=== PATIENT | male | born 1955 | race Caucasian/White ===

== ENCOUNTER 2017-04-27 21:24 | Inpatient (IN) | payer MEDICAID ==
[~2017-04-27] VITALS: Ht 170.2 cm; Wt 88.9 kg
[~2017-04-27 21:24] MED LIST: BACT800T5 PO; CEPH-460 PO; IOHEXOL 350 MG/ML 10 ML VIAL (for RAD DIAG) IVCONTRAST ONE; LAMI200T PO
[2017-04-27 21:41] VITALS: BP 129/78; PULSE 76; RESP 20; TEMP 97.6; O2SAT 98
[2017-04-27 21:50] VITALS: BP 129/78; PULSE 69; RESP 20; O2SAT 98
[2017-04-27] MEDS ORDERED: CLINDAMYCIN INJ 600 MG in SODIUM CHLORIDE 0.9% INJ 100 ML IV ONE (22:00)
[2017-04-27] MEDS ORDERED: TETANUS/DIPHTHERIA TOXOID ADULT 0.5 ML VIAL IM ONE (22:00)
[2017-04-27] MEDS ORDERED: SODIUM CHLORIDE 0.9% FLUSH 10 ML FLUSH IVF PRN (22:00)
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
[2017-04-27] MEDS ORDERED: ONDANSETRON HCL 4 MG/2 ML VIAL IV PUSH ONE (22:45)
[2017-04-27] MEDS ORDERED: MORPHINE SULFATE 2 MG/ML INJ IV PUSH ONE (22:45)
[2017-04-27] MEDS ORDERED: NS + KCL 20 MEQ INJ 1,000 ML IV SCH (22:58)
[2017-04-27] MEDS ORDERED: ACETAMINOPHEN 325 MG TAB PO PRN (23:00)
[2017-04-27] MEDS ORDERED: CALCIUM GLUCONATE INJ 1 GM in SODIUM CHLORIDE 0.9% INJ 100 ML IV PRN (23:00)
[2017-04-27] MEDS ORDERED: MAGNESIUM HYDROXIDE SUSP 30 ML CUP PO PRN (23:00)
[2017-04-27] MEDS ORDERED: POTASSIUM CHLOR 20 MEQ PREMIX 100 ML IV PRN (23:00)
[2017-04-27] MEDS ORDERED: MORPHINE SULFATE 4 MG/ML INJ IV PUSH PRN (23:00)
[2017-04-27] MEDS ORDERED: ACETAMINOPHEN/HYDROcodone 325 MG/10 MG TAB PO PRN (23:00)
[2017-04-27] MEDS ORDERED: MAGNESIUM SULFATE INJ 2 GM in SODIUM CHLORIDE 0.9% INJ 100 ML IV PRN (23:00)
[2017-04-27] MEDS ORDERED: ALUMINUM/MAGNESIUM/SIMETH 30 ML CUP PO PRN (23:00)
[2017-04-27] MEDS ORDERED: cloNIDine HCL 0.1 MG TAB PO PRN (23:00)
[2017-04-27] MEDS ORDERED: levETIRAcetam INJ 500 MG in SODIUM CHLORIDE 0.9% INJ 100 ML IV SCH (23:00)
[2017-04-27] MEDS ORDERED: RESP: ALBUTEROL 2.5 MG/3 ML NEB (PRN) NEB (23:00)
[2017-04-27] MEDS ORDERED: ONDANSETRON HCL 4 MG/2 ML VIAL IV PUSH PRN (23:00)
[2017-04-27] MEDS ORDERED: LORazepam 2 MG/ML VIAL IV PUSH PRN (23:00)
[2017-04-27] MEDS ORDERED: LABETALOL HCL 100 MG/20 ML VIAL IV PUSH PRN (23:00)
[2017-04-27] MEDS ORDERED: SODIUM CHLORIDE 0.9% FLUSH 10 ML FLUSH IV FLUSH PRN (23:00)
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
[2017-04-28] VITALS (14 sets, daily range): BP systolic 99–135; BP diastolic 66–76; PULSE 54–68; RESP 17–20; TEMP 98.3–98.7; O2SAT 94–99
[2017-04-28 00:03] LABS: AUTOMATED NEUTROPHIL # 6.2 TH/MM3 (1.8-7.7); BASOPHIL % 0.5 % (0.0-2.0); EOSINOPHIL # 0.1 TH/MM3 (0-0.4); EOSINOPHIL % 1.9 % (0.0-4.0); HEMO FLAGS DIFF FINAL; LYMPH % 8.1 % (9.0-44.0); LYMPHOCYTE # 0.6 TH/MM3 (1.0-4.8); MEAN CELL VOLUME 98.5 FL (80.0-100.0); MEAN CORPUSCULAR HEMOGLOBIN 32.8 PG (27.0-34.0); MEAN CORPUSCULAR HGB CONC 33.3 % (32.0-36.0); MONO % 5.8 % (0.0-8.0); NEUT % 83.7 % (16.0-70.0); PLATELET COUNT 248 TH/MM3 (150-450); RED BLOOD COUNT 3.55 MIL/MM3 (4.50-5.90); RED CELL DISTRIBUTION WIDTH 13.9 % (11.6-17.2); WHITE BLOOD COUNT 7.4 TH/MM3 (4.0-11.0)
[2017-04-28 00:08] LABS: APTT (PATIENT) 30.1 SEC (24.3-30.1); PROTHROMBIN TIME - PATIENT 11.2 SEC (9.8-11.6)
[2017-04-28 00:11] LABS: BICARBONATE 27.4 MEQ/L (21.0-32.0); POTASSIUM 3.9 MEQ/L (3.5-5.1)
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
[2017-04-28] MEDS ORDERED: NALOXONE HCL 0.4 MG/ML AMP IV PUSH PRN (01:45)
[2017-04-28] MEDS: levETIRAcetam INJ 500 MG in SODIUM CHLORIDE 0.9% INJ 100 ML IV SCH ×3 (01:45→20:09)
[2017-04-28] MEDS ORDERED: SODIUM CHLORIDE 0.9% FLUSH 10 ML FLUSH IV FLUSH PRN (01:45)
[2017-04-28] MEDS ORDERED: ONDANSETRON HCL 4 MG/2 ML VIAL IV PUSH PRN (01:45)
[2017-04-28] MEDS ORDERED: Post-op Orders (for Pharmacy) MISC XX ONE (01:45)
[2017-04-28] MEDS: MORPHINE SULFATE 4 MG/ML INJ IV PUSH PRN (02:19)
[2017-04-28] MEDS: SODIUM CHLOR 0.9% 1000 ML INJ 1,000 ML IV SCH ×2 (02:20→11:13)
[2017-04-28 05:27] LABS: AUTOMATED NEUTROPHIL # 4.2 TH/MM3 (1.8-7.7); BASOPHIL % 0.4 % (0.0-2.0); EOSINOPHIL # 0.2 TH/MM3 (0-0.4); EOSINOPHIL % 3.7 % (0.0-4.0); HEMATOCRIT 30.6 % (39.0-51.0); HEMO FLAGS DIFF FINAL; LYMPHOCYTE # 0.7 TH/MM3 (1.0-4.8); MEAN CELL VOLUME 97.5 FL (80.0-100.0); MEAN CORPUSCULAR HEMOGLOBIN 33.4 PG (27.0-34.0); MEAN CORPUSCULAR HGB CONC 34.3 % (32.0-36.0); MONO % 9.1 % (0.0-8.0); NEUT % 74.8 % (16.0-70.0); PLATELET COUNT 200 TH/MM3 (150-450); RED BLOOD COUNT 3.13 MIL/MM3 (4.50-5.90); RED CELL DISTRIBUTION WIDTH 13.6 % (11.6-17.2); WHITE BLOOD COUNT 5.7 TH/MM3 (4.0-11.0)
[2017-04-28 05:43] LABS: BICARBONATE 25.5 MEQ/L (21.0-32.0); MAGNESIUM 2.1 MG/DL (1.5-2.5)
[2017-04-28] MEDS ORDERED: SODIUM CHLORIDE 0.9% FLUSH 10 ML FLUSH IV FLUSH SCH (09:00)
[2017-04-28] MEDS ORDERED: PANTOPRAZOLE SOD 40 MG DELAYED RELEASE TAB PO SCH (09:00)
[2017-04-28] MEDS ORDERED: DOCUSATE SODIUM 100 MG CAP PO SCH (09:00)
--- NOTE | 2017-04-28 09:05 | RADRPT ---
EXAM DATE/TIME: 04/27/2017 21:54 [facility] COMPARISON: CT BRAIN W/O CONTRAST, April 27, 2017, 21:52. INDICATIONS : Subdural hematoma. RADIATION DOSE: 45.0 CTDIvol (mGy) MEDICAL HISTORY : Congestive hearrt failure. Hepatitis C. SURGICAL HISTORY : None. ENCOUNTER: Subsequent ACUITY: 1 day PAIN SCALE: 0/10 LOCATION: Bilateral head TECHNIQUE: Multiple contiguous axial images were obtained of the head. Using automated exposure control and adj ustment of the mA and/or kV according to patient size, radiation dose was kept as low as reasonably a chievable to obtain optimal diagnostic quality images. DICOM format image data is available electro nically for review and comparison. FINDINGS: Today's exam is compared to the earlier study. There has been no significant change in the bilateral subarachnoid hemorrhage. There has been no change in the left posterior parietal subdural hematoma wi th 4 mm of separation. There has been no significant changes with the mild mass effect and midline s hift to the right by 2 mm. The ventricles remain normal in size. No new areas of hemorrhage are demon strated. The posterior fossa remains stable. There is stable soft tissue swelling of the right scalp. The calvarium is grossly intact. CONCLUSION: Stable followup CT scan of the brain with no new or significant changes within the bilateral subarach noid hemorrhage. No change in the 4 mm left posterior parietal subdural hematoma. No change in the mi ld mass effect and midline shift to the right. Jacoby Coe MD on April 28, 2017 at 8:59 Board Certified Radiologist. This report was verified electronically.
[2017-04-28] MEDS: FAMOTIDINE 20 MG TAB PO SCH ×2 (10:04→20:10)
[2017-04-28] MEDS: LEVOFLOXACIN 500 MG PREMIX INJ 100 ML IV SCH (10:04)
[2017-04-28] MEDS: DOCUSATE SODIUM 100 MG CAP PO SCH ×2 (10:04→20:09)
[2017-04-28] MEDS: POLYETHYLENE GLYCOL 17 GM PKG PO SCH (10:04)
[2017-04-28] MEDS: SODIUM CHLORIDE 0.9% FLUSH 10 ML FLUSH IV FLUSH SCH ×2 (10:04→20:09)
[2017-04-28] MEDS: oxyCODONE/ACETAMINOPHEN 5 MG/325 MG TAB PO PRN (10:16)
[2017-04-28] MEDS: BACITRACIN TOP OINT 15 GM TUBE TOP SCH ×2 (10:34→20:10)
[2017-04-28] MEDS: lamoTRIgine 100 MG TAB PO SCH (10:36)
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
--- NOTE | 2017-04-28 13:27 | RADRPT ---
EXAM DATE/TIME: 04/28/2017 13:03 [facility] COMPARISON: ANKLE LEFT COMPLETE ([id number]), April 27, 2017, 22:07. INDICATIONS : Left ankle pain and swelling. RADIATION DOSE: 7.29 CTDIvol (mGy) MEDICAL HISTORY : Cardiovascular disease. Congestive heart failure. Hepatitis C. SURGICAL HISTORY : Cholecystectomy. ENCOUNTER: Initial ACUITY: 4 - 6 days PAIN SCALE: 7/10 LOCATION: Left ankle. TECHNIQUE: Volumetric scanning of the ankle was performed. Using automated exposure control and adjustment of t he mA and/or kV according to patient size, radiation dose was kept as low as reasonably achievable to obtain optimal diagnostic quality images. DICOM format image data is available electronically for review and comparison. FINDINGS: There is edema in the subcutaneous tissues characteristics of cellulitis without abscess. Prominent v aricosities are present. There is no bony destruction or periosteal reaction to suggest osteomyelitis . There is no evidence of acute fracture. Bony mineralization is normal. The ankle mortise is intact. Joint spaces are maintained. CONCLUSION: 1. Cellulitis without evidence of osteomyelitis Renan Brito MD on April 28, 2017 at 13:24 Board Certified Radiologist. This report was verified electronically.
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
[2017-04-29] VITALS (9 sets, daily range): BP systolic 108–162; BP diastolic 70–98; PULSE 55–68; RESP 16–22; TEMP 98.2–98.7; O2SAT 97–99
[2017-04-29] MEDS: oxyCODONE/ACETAMINOPHEN 5 MG/325 MG TAB PO PRN (01:00)
[2017-04-29] MEDS: SODIUM CHLOR 0.9% 1000 ML INJ 1,000 ML IV SCH ×4 (03:34→16:57)
[2017-04-29 05:14] LABS: AUTOMATED NEUTROPHIL # 4.3 TH/MM3 (1.8-7.7); BASOPHIL % 0.8 % (0.0-2.0); EOSINOPHIL # 0.2 TH/MM3 (0-0.4); EOSINOPHIL % 3.6 % (0.0-4.0); HEMO FLAGS DIFF FINAL; LYMPH % 14.1 % (9.0-44.0); LYMPHOCYTE # 0.8 TH/MM3 (1.0-4.8); MEAN CELL VOLUME 97.9 FL (80.0-100.0); MEAN CORPUSCULAR HEMOGLOBIN 32.8 PG (27.0-34.0); MEAN CORPUSCULAR HGB CONC 33.5 % (32.0-36.0); MONO % 9.7 % (0.0-8.0); NEUT % 71.8 % (16.0-70.0); PLATELET COUNT 215 TH/MM3 (150-450); RED BLOOD COUNT 3.37 MIL/MM3 (4.50-5.90); RED CELL DISTRIBUTION WIDTH 13.5 % (11.6-17.2); WHITE BLOOD COUNT 5.9 TH/MM3 (4.0-11.0)
[2017-04-29 05:36] LABS: BICARBONATE 26.7 MEQ/L (21.0-32.0); POTASSIUM 4.2 MEQ/L (3.5-5.1)
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
[2017-04-29] MEDS: lamoTRIgine 100 MG TAB PO SCH (08:19)
[2017-04-29] MEDS: POLYETHYLENE GLYCOL 17 GM PKG PO SCH (08:19)
[2017-04-29] MEDS: DOCUSATE SODIUM 100 MG CAP PO SCH ×2 (08:19→23:06)
[2017-04-29] MEDS: FAMOTIDINE 20 MG TAB PO SCH ×2 (08:19→23:06)
[2017-04-29] MEDS: levETIRAcetam INJ 500 MG in SODIUM CHLORIDE 0.9% INJ 100 ML IV SCH (08:19)
[2017-04-29] MEDS: SODIUM CHLORIDE 0.9% FLUSH 10 ML FLUSH IV FLUSH SCH ×2 (08:19→23:06)
[2017-04-29] MEDS: ACETAMINOPHEN/HYDROcodone 325 MG/10 MG TAB PO PRN ×4 (08:20→23:08)
[2017-04-29] MEDS: BACITRACIN TOP OINT 15 GM TUBE TOP SCH ×2 (09:00→23:08)
[2017-04-29] MEDS: MORPHINE SULFATE 4 MG/ML INJ IV PUSH PRN ×2 (09:11→18:38)
[2017-04-29] MEDS: LEVOFLOXACIN 500 MG PREMIX INJ 100 ML IV SCH (09:30)
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
[2017-04-29] MEDS: SULFAMETHOXAZOLE-TRIMETHOPRIM DS 800-160 MG TAB PO SCH ×2 (15:31→23:06)
--- NOTE | 2017-04-29 18:03 | OTSOAPIP ---
TIME SESSION COMPLETED: PM TREATMENT TIME: 0 MINS. CHART REVIEWED. ATTEMPTED TO SEE FOR OCCUPATIONAL THERAPY HOWEVER RECEIVING NURSING CARE. WILL FOLLOW NEXT DAY. Therapist: DELMER MOSCOSO OT/L Signature on file
[2017-04-29] MEDS ORDERED: ACETAMINOPHEN/HYDROcodone 325 MG/5 MG TAB PO PRN (20:30)
[2017-04-29] MEDS ORDERED: levETIRAcetam 250 MG TAB PO SCH (21:00)
[2017-04-30 00:39] VITALS: BP 139/82; PULSE 68; RESP 18; TEMP 98.1; O2SAT 97
[2017-04-30 05:00] VITALS: BP 114/67; PULSE 76; RESP 18; TEMP 99; O2SAT 95
[2017-04-30] MEDS: ACETAMINOPHEN/HYDROcodone 325 MG/10 MG TAB PO PRN ×2 (05:53→11:52)
[2017-04-30] MEDS ORDERED: levETIRAcetam 500 MG TAB PO SCH (09:00)
[2017-04-30 09:11] VITALS: BP 113/68; PULSE 66; RESP 16; TEMP 98.5; O2SAT 95
[2017-04-30] MEDS: SODIUM CHLORIDE 0.9% FLUSH 10 ML FLUSH IV FLUSH SCH (09:37)
[2017-04-30] MEDS: SULFAMETHOXAZOLE-TRIMETHOPRIM DS 800-160 MG TAB PO SCH (09:37)
[2017-04-30] MEDS: LEVOFLOXACIN 500 MG PREMIX INJ 100 ML IV SCH (09:37)
[2017-04-30] MEDS: lamoTRIgine 100 MG TAB PO SCH (09:37)
[2017-04-30] MEDS: BACITRACIN TOP OINT 15 GM TUBE TOP SCH (09:37)
[2017-04-30] MEDS: DOCUSATE SODIUM 100 MG CAP PO SCH (09:37)
[2017-04-30] MEDS: POLYETHYLENE GLYCOL 17 GM PKG PO SCH (09:37)
[2017-04-30] MEDS: FAMOTIDINE 20 MG TAB PO SCH (09:37)
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
[2017-04-30] MEDS ORDERED: BACT800T5 PO (10:27)
[2017-04-30] MEDS ORDERED: HYDR-3516 PO (10:27)
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
[2017-04-30 12:43] VITALS: BP 128/60; PULSE 88; RESP 18; TEMP 98.8; O2SAT 98
== END 2017-04-30 14:54 | disposition home or self-care (01) | DRG 562 ==
LOC: NEPC 21:24 → NEDA 04-28 01:14 → N03B 04-28 02:29 → N05B 04-29 15:05
PROVIDERS: ADMIT Surgery; ATTEND Surgery
DX: S42.341A Displaced spiral fracture of shaft of humerus, right arm, initial encounter for closed fracture (principal); S06.5X9A Traumatic subdural hemorrhage with loss of consciousness of unspecified duration, initial encounter; I50.9 Heart failure, unspecified; S06.6X9A Traumatic subarachnoid hemorrhage with loss of consciousness of unspecified duration, initial encounter; L03.116 Cellulitis of left lower limb; F19.20 Other psychoactive substance dependence, uncomplicated; L97.329 Non-pressure chronic ulcer of left ankle with unspecified severity; S42.031A Displaced fracture of lateral end of right clavicle, initial encounter for closed fracture; F31.9 Bipolar disorder, unspecified; I87.8 Other specified disorders of veins; F17.210 Nicotine dependence, cigarettes, uncomplicated; V18.0XXA Pedal cycle driver injured in noncollision transport accident in nontraffic accident, initial encounter; Y93.55 Activity, bike riding; Z22.322 Carrier or suspected carrier of Methicillin resistant Staphylococcus aureus; Z59.0 Homelessness; Z98.1 Arthrodesis status
CPT/HCPCS: 29105; 70450; 71010; 71260; 72125; 73060; 73610; 73700; 74177; 80048; 83605; 83735; 85025; 85610; 85730; 86403; 87070; 87147; 87186; 87205; 87641; 90471; 90714; 94002; 94150; 94770; 96374; 96375; J1953; J1956; J2270; J2405; J7030; Q9967

== ENCOUNTER 2017-06-05 16:03 | Inpatient (IN) | payer OTHER ==
[~2017-06-05] VITALS: Ht 172.7 cm; Wt 84.2 kg
[~2017-06-05 16:03] MED LIST changes: -CEPH-460 PO; +HYDR-3516 PO; -IOHEXOL 350 MG/ML 10 ML VIAL (for RAD DIAG) IVCONTRAST ONE
[2017-06-05 16:04] VITALS: BP 144/90; PULSE 67; RESP 18; TEMP 98.8; O2SAT 100
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
[2017-06-05] MEDS ORDERED: IBUPROFEN 800 MG TAB PO ONE (16:45)
[2017-06-05] MEDS ORDERED: LORazepam 2 MG TAB PO ONE (17:00)
[2017-06-05 17:44] LABS: BLOOD, URINE NEG (NEG); GLUCOSE,URINE NEG (NEG); KETONE, URINE NEG (NEG); NITRITE,URINE NEG (NEG); URINE COLOR LIGHT-YELLOW (YELLW/STRAW)
[2017-06-05 17:48] LABS: COMMENT (UR) CULT NOT INDICATED; CULTURE IF INDICATED CULT NOT INDICATED
[2017-06-05 18:02] LABS: AUTOMATED NEUTROPHIL # 4.9 TH/MM3 (1.8-7.7); BASOPHIL # 0.1 TH/MM3 (0-0.2); BASOPHIL % 0.9 % (0.0-2.0); EOSINOPHIL # 0.3 TH/MM3 (0-0.4); EOSINOPHIL % 3.9 % (0.0-4.0); HEMATOCRIT 38.7 % (39.0-51.0); LYMPH % 15.4 % (9.0-44.0); LYMPHOCYTE # 1.1 TH/MM3 (1.0-4.8); MEAN CELL VOLUME 97.8 FL (80.0-100.0); MEAN CORPUSCULAR HGB CONC 34.7 % (32.0-36.0); NEUT % 69.8 % (16.0-70.0); PLATELET COUNT 203 TH/MM3 (150-450); RED BLOOD COUNT 3.96 MIL/MM3 (4.50-5.90); RED CELL DISTRIBUTION WIDTH 14.7 % (11.6-17.2); WHITE BLOOD COUNT 7.1 TH/MM3 (4.0-11.0)
[2017-06-05 18:03] LABS: HEMO FLAGS AUTO DIFF
[2017-06-05 18:06] LABS: ALT (GPT) 70 U/L (12-78); ANION GAP 6 MEQ/L (5-15); AST (GOT) 52 U/L (15-37); BICARBONATE 27.8 MEQ/L (21.0-32.0); BLOOD UREA NITROGEN 8 MG/DL (7-18); CHLORIDE 106 MEQ/L (98-107); GLOMERULAR FILTRATION RATE 106 ML/MIN (>89); POTASSIUM 3.7 MEQ/L (3.5-5.1); SODIUM (NA) 140 MEQ/L (136-145)
[2017-06-05 18:08] LABS: ALKALINE PHOSPHATASE 103 U/L (45-117); TOTAL BILIRUBIN ADULT 1.2 MG/DL (0.2-1.0)
[2017-06-05 18:31] LABS: BANDS 2 % (0-6); BASOPHILS 2 % (0-2); EOSINOPHILS 5 % (0-4); NEUTROPHIL # MANUAL DIFF 4.9 TH/MM3 (1.8-7.7); POLYS (SEG NEUTROPHILS) 67 % (16-70); WBC DIFF SAMPLE 100
[2017-06-05 18:33] LABS: OVALOCYTES 1+ (NORMAL); PLATELET ESTIMATE SMEAR NORMAL (NORMAL); PLATELET MORPHOLOGY NORMAL (NORMAL); SCAN/DIFF FINAL DIFF MANUAL; SPHEROCYTES 1+ (NORMAL)
[2017-06-05 21:37] VITALS: BP 139/74; PULSE 80; RESP 17; O2SAT 98
[2017-06-06 00:02] VITALS: BP 109/61; PULSE 49; RESP 18
[2017-06-06 06:11] VITALS: BP 115/69; PULSE 56; RESP 17; O2SAT 98
[2017-06-06] MEDS ORDERED: FLUMAZENIL 0.5 MG/5 ML VIAL IV PUSH PRN (10:30)
[2017-06-06] MEDS ORDERED: LORazepam 1 MG TAB PO PRN (10:30)
[2017-06-06] MEDS ORDERED: diphenhydrAMINE HCL 50 MG/ML VIAL IM PRN (10:30)
[2017-06-06] MEDS ORDERED: LORazepam 2 MG TAB PO PRN (10:30)
[2017-06-06] MEDS ORDERED: lamoTRIgine 100 MG TAB PO SCH (10:30)
[2017-06-06] MEDS ORDERED: MAGNESIUM HYDROXIDE SUSP 30 ML CUP PO PRN (10:30)
[2017-06-06] MEDS ORDERED: LORazepam 2 MG/ML VIAL IV PUSH PRN ×4 (10:30)
[2017-06-06] MEDS ORDERED: ACETAMINOPHEN 325 MG TAB PO PRN (10:30)
[2017-06-06] MEDS ORDERED: ALUMINUM/MAGNESIUM/SIMETH 30 ML CUP PO PRN (10:30)
[2017-06-06] MEDS ORDERED: diphenhydrAMINE HCL 50 MG CAP PO PRN (10:30)
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
[2017-06-06 11:48] VITALS: BP 133/83; PULSE 74; RESP 18
--- NOTE | 2017-06-06 14:04 | RADRPT ---
EXAM DATE/TIME: 06/06/2017 13:47 [place] COMPARISON: HUMERUS RIGHT (MIN 2VWS), April 27, 2017, 22:09. INDICATIONS : Post splint placement. MEDICAL HISTORY : Congestive heart failure. Bipolar. SURGICAL HISTORY : Cholecystectomy. Hernia repair.Neck surgery. Right arm surgery. ENCOUNTER: Initial ACUITY: 1 day PAIN SCORE: 10/10 LOCATION: Right humerus FINDINGS: Two view examination of the right humerus demonstrates a long bone fracture of the humerus with 2 dis tinct fracture planes. There is slight medial and anterior angulation of the primary fracture line in the mid shaft. There is some bridging periosteal reaction posteriorly of the distal fracture line Th e soft tissue structures are intact. CONCLUSION: Casting material overlies the shoulder . Spinal fracture the midshaft of the humerus with a small in tercalary fragment. Some periosteal reaction posteriorly along the main fracture line. Only mild med ial anterior angulation remains. Berto Doan MD on June 06, 2017 at 14:00 Board Certified Radiologist. This report was verified electronically.
[2017-06-06 14:05] VITALS: BP 108/65; PULSE 76; RESP 20; TEMP 98.5; O2SAT 100
--- NOTE | 2017-06-06 17:36 | PD.WCN.NOT ---
Wound Consult Description: Received consult for wound management of L ankle from Doctor Pendleton Communicated with: JANICE Durand [facility] psych unit and Doctor Fleming for orders Recommendation: Please apply antibiotic ointment to intact scabs on L ankle as ordered by physician and leave open to air Additional Information: Patient seen on [facility] psych unit for evaluation of wound management to L ankle. Patient seen with Kizzy CAMACHO [facility] unit. Patient noted with 4 intact scabs to L ankle. L ankle is slightly erythematous and slight induration is noted to one scab on medial L ankle. Patient had culture of L ankle wound in April that was positive for MRSA. All scabs appear dry and intact without drainage. All scabs left open to air.Recommendations noted above, discussed recommendations with Doctor Pendleton and is he is in agreement. Mady Rodas [facility] Jun 06, 2017 17:36
[2017-06-07 05:41] VITALS: BP 129/76; PULSE 61; RESP 16; TEMP 98.7; O2SAT 97
[2017-06-07 07:47] LABS: ANION GAP 4 MEQ/L (5-15); AST (GOT) 46 U/L (15-37); BICARBONATE 30.1 MEQ/L (21.0-32.0); BLOOD UREA NITROGEN 14 MG/DL (7-18); CHLORIDE 105 MEQ/L (98-107); GLOMERULAR FILTRATION RATE 102 ML/MIN (>89); POTASSIUM 3.5 MEQ/L (3.5-5.1); SODIUM (NA) 139 MEQ/L (136-145)
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
[2017-06-07 08:16] LABS: ALKALINE PHOSPHATASE 80 U/L (45-117); ALT (GPT) 64 U/L (12-78); LDL CHOLESTEROL 21 MG/DL (0-99); TOTAL BILIRUBIN ADULT 0.8 MG/DL (0.2-1.0)
[2017-06-07 08:51] LABS: AUTOMATED NEUTROPHIL # 2.9 TH/MM3 (1.8-7.7); EOSINOPHIL # 0.4 TH/MM3 (0-0.4); EOSINOPHIL % 7.4 % (0.0-4.0); HEMO FLAGS DIFF FINAL; LYMPH % 18.8 % (9.0-44.0); LYMPHOCYTE # 0.9 TH/MM3 (1.0-4.8); MEAN CELL VOLUME 98.2 FL (80.0-100.0); MEAN CORPUSCULAR HEMOGLOBIN 32.9 PG (27.0-34.0); MEAN CORPUSCULAR HGB CONC 33.5 % (32.0-36.0); MONO % 11.6 % (0.0-8.0); NEUT % 61.2 % (16.0-70.0); PLATELET COUNT 194 TH/MM3 (150-450); RED BLOOD COUNT 4.07 MIL/MM3 (4.50-5.90); RED CELL DISTRIBUTION WIDTH 14.6 % (11.6-17.2); WHITE BLOOD COUNT 4.8 TH/MM3 (4.0-11.0)
[2017-06-07] MEDS: REMOVE OLD PATCH T-DERMAL SCH (09:00)
[2017-06-07] MEDS: NICOTINE 21 MG/24 HR PATCH T-DERMAL SCH (09:12)
[2017-06-07] MEDS: lamoTRIgine 100 MG TAB PO SCH (09:13)
[2017-06-07] MEDS ORDERED: INFLUENZA VIRUS VACCINE (QUADRIVALENT) 0.5 ML SYR IM ONE (10:00)
[2017-06-07] MEDS ORDERED: PNEUMOCOCCAL POLYVALENT INJ 25 MCG/0.5 ML SYR IM ONE (10:00)
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
--- NOTE | 2017-06-07 10:54 | HHI.PR ---
Subjective Remarks looks and feels more comfortable today. abdominal pain has much improved along with the pain in the right shoulder. d/w the RN and no acute issues over night. Objective Vitals Vital Signs Date Time Temp Pulse Resp B/P (MAP) Pulse Ox O2 Delivery O2 Flow Rate FiO2 06/07/17 05:41 98.7 61 16 129/76 (93) 97 06/06/17 15:19 06/06/17 14:05 98.5 76 20 108/65 (79) 100 06/06/17 11:48 74 18 133/83 (100) Result Diagram: 06/07/17 0557 06/07/17 0557 Imaging Last Impressions Humerus X-Ray 06/06/17 0000 Signed Impressions: Service Date/Time: Tuesday, June 06, 2017 13:47 - CONCLUSION: Casting material overlies the shoulder . Spinal fracture the midshaft of the humerus with a small intercalary fragment. Some periosteal reaction posteriorly along the main fracture line. Only mild medial anterior angulation remains. Berto Doan MD Objective Remarks GENERAL: This is a well-nourished, well-developed patient, in no apparent distress. CARDIOVASCULAR: Regular rate and regular rhythm without murmurs, gallops, or rubs. RESPIRATORY: Clear to auscultation. Breath sounds equal bilaterally. No wheezes , rales, or rhonchi. GASTROINTESTINAL: Abdomen soft, non-tender, nondistended. Normal, active bowel sounds MUSCULOSKELETAL: right upper extremity covered with clean dressing. NEURO: Alert & Oriented x4 to person, place, time, situation. Moves all ext x4 Medications and IVs Current Medications Ibuprofen (Motrin) 800 mg ONCE ONCE PO Last administered on 06/05/17 17:34; Start 06/05/17 at 16:45; Stop 06/05/17 at 16:46; Status DC Lorazepam (Ativan) 2 mg ONCE ONCE PO Last administered on 06/05/17 17:34; Start 06/05/17 at 17:00; Stop 06/05/17 at 17:01; Status DC Diphenhydramine HCl (Benadryl) 50 mg Q6H PRN PO For mild anxiety and/or EPS; Start 06/06/17 at 10:30; Stop 06/07/17 at 10:05; Status DC Diphenhydramine HCl (Benadryl Inj) 50 mg Q6H PRN IM For mild anxiety and/or EPS ; Start 06/06/17 at 10:30; Stop 06/07/17 at 10:05; Status DC Acetaminophen (Tylenol) 650 mg Q4H PRN PO Pain 1-5 or Temp >101F; Start at 10:30 Magnesium Hydroxide (Milk Of Magnesia Liq) 30 ml DAILY PRN PO CONSTIPATION; Start 06/06/17 at 10:30 Al Hydrox/Mg Hydrox/Simethicone (Mag-Al Plus Susp Liq) 30 ml Q6H PRN PO DYSPEPSIA; Start 06/06/17 at 10:30 Nicotine (Habitrol 21 Mg Patch.24 Hr) 1 patch DAILY T-DERMAL Last administered on 06/07/17t 09:12; Start 06/07/17 at 09:00 Trazodone HCl (Desyrel) 50 mg HS PRN PO INSOMNIA; Start 06/06/17 at 10:30 Miscellaneous Information 1 DAILY T-DERMAL ; Start 06/07/17 at 09:00 Lamotrigine (LaMICtal) 400 mg DAILY PO ; Start 06/06/17 at 10:30; Stop at 18:52; Status DC Flumazenil (Romazicon Inj) 0.2 mg Q1M PRN IV PUSH SEE LABEL COMMENTS; Start at 10:30 Lorazepam (Ativan) 1 mg Q4H PRN PO CIWA 8 - 10; Start 06/06/17 at 10:30 Lorazepam (Ativan Inj) 1 mg Q4H PRN IV PUSH CIWA 8 - 10; Start 06/06/17 at 10: 30 Lorazepam (Ativan) 2 mg Q2H PRN PO CIWA 11-14; Start 06/06/17 at 10:30 Lorazepam (Ativan Inj) 2 mg Q2H PRN IV PUSH CIWA 11-14; Start 06/06/17 at 10: 30 Lorazepam (Ativan Inj) 2 mg Q1H PRN IV PUSH CIWA 15-20; Start 06/06/17 at 10: 30 Lorazepam (Ativan Inj) 2 mg Q15M PRN IV PUSH CIWA > 20; Start 06/06/17 at 10: 30 Pneumococcal Polyvalent Vaccine (Pneumovax-23 Inj) 25 mcg ONCE ONCE IM ; Start 06/07/17 at 10:00; Stop 06/07/17 at 10:01; Status DC Influenza Virus Vaccine (Flu (Quadrivalent) Vaccine Inj) 0.5 ml ONCE ONCE IM ; Start 06/07/17 at 10:00; Stop 06/07/17 at 10:01; Status DC Lamotrigine (LaMICtal) 200 mg ONCE@1815 PO Last administered on 06/06/17 18: 15; Start 06/07/17 at 18:15; Stop 06/07/17 at 20:00 Lamotrigine (LaMICtal) 400 mg DAILY PO Last administered on 06/07/17 09:13; Start 06/07/17 at 09:00 Risperidone (risperDAL M-TAB) 1 mg Q12HR PO ; Start 06/07/17 at 10:15 A/P Assessment and Plan A/P -bipolar disorder with suicidal ideation- management per psych. - fairly recent fall with right humerus/ clavicle fracture- was evaluated by ortho at the time and recommended non-op treatment with outpatient f/u which he never did- ortho f/u appreciated; put on brace/ NWB- f/u as outpatient; PT/OT consulted. -abdominal pain- better- had a recent negative CT abdomen . -chronic wound on the left ankle- wound care evaluation appreciated; will start Bactroban ointment- f/u as outpatient. [facility] will sign off and see him as needed. d/w the RN. Abdias Pendleton MD Jun 07, 2017 10:54
[2017-06-07 10:56] LABS: HEMOGLOBIN A1a 1.4 %; HEMOGLOBIN A1b 0.6 %; HEMOGLOBIN Ao 85.9 %; HEMOGLOBIN LA1C 1.9 %; HEMOGLOBIN P3 3.7 %
[2017-06-07] MEDS: risperiDONE ODT 1 MG TAB PO SCH ×2 (13:49→20:29)
[2017-06-07 17:16] VITALS: BP 125/69; PULSE 66; RESP 18; TEMP 96.9; O2SAT 98
[2017-06-07] MEDS ORDERED: lamoTRIgine 100 MG TAB PO SCH (18:15)
[2017-06-07] MEDS: MUPIROCIN 2% CREAM 15 GM TOPICAL SCH (20:29)
[2017-06-08 06:26] VITALS: BP 121/69; PULSE 73; RESP 16; TEMP 98.2; O2SAT 99
[2017-06-08 07:38] VITALS: BP 80/50; PULSE 58; RESP 16; TEMP 97.4; O2SAT 100
[2017-06-08 08:15] VITALS: BP 105/72; PULSE 60
--- NOTE | 2017-06-08 08:47 | HHI.PR ---
Subjective Remarks in no acute distress. notified by the RN that the his BP was low. he says that he felt slightly lightheaded earlier today but now feels better. denies chest pain. BP trend noted. says that had some on and off black stools recently. d/w the RN. Objective Vitals Vital Signs Date Time Temp Pulse Resp B/P (MAP) Pulse Ox O2 Delivery O2 Flow Rate FiO2 06/08/17 08:15 60 105/72 (83) 06/08/17 07:38 97.4 58 16 80/50 (60) 100 06/08/17 06:26 98.2 73 16 121/69 (86) 99 06/07/17 17:16 96.9 66 18 125/69 (87) 98 Result Diagram: 06/07/17 0557 06/07/17 0557 Imaging Last Impressions Humerus X-Ray 06/06/17 0000 Signed Impressions: Service Date/Time: Tuesday, June 06, 2017 13:47 - CONCLUSION: Casting material overlies the shoulder . Spinal fracture the midshaft of the humerus with a small intercalary fragment. Some periosteal reaction posteriorly along the main fracture line. Only mild medial anterior angulation remains. Berto Doan MD Objective Remarks GENERAL: This is a well-nourished, well-developed patient, in no apparent distress. CARDIOVASCULAR: Regular rate and regular rhythm without murmurs, gallops, or rubs. RESPIRATORY: Clear to auscultation. Breath sounds equal bilaterally. No wheezes , rales, or rhonchi. GASTROINTESTINAL: Abdomen soft, non-tender, nondistended. Normal, active bowel sounds MUSCULOSKELETAL: right upper extremity covered with clean dressing. NEURO: Alert & Oriented x4 to person, place, time, situation. Moves all ext x4 Medications and IVs Current Medications Ibuprofen (Motrin) 800 mg ONCE ONCE PO Last administered on 06/05/17 17:34; Start 06/05/17 at 16:45; Stop 06/05/17 at 16:46; Status DC Lorazepam (Ativan) 2 mg ONCE ONCE PO Last administered on 06/05/17 17:34; Start 06/05/17 at 17:00; Stop 06/05/17 at 17:01; Status DC Diphenhydramine HCl (Benadryl) 50 mg Q6H PRN PO For mild anxiety and/or EPS; Start 06/06/17 at 10:30; Stop 06/07/17 at 10:05; Status DC Diphenhydramine HCl (Benadryl Inj) 50 mg Q6H PRN IM For mild anxiety and/or EPS ; Start 06/06/17 at 10:30; Stop 06/07/17 at 10:05; Status DC Acetaminophen (Tylenol) 650 mg Q4H PRN PO Pain 1-5 or Temp >101F; Start at 10:30 Magnesium Hydroxide (Milk Of Magnesia Liq) 30 ml DAILY PRN PO CONSTIPATION; Start 06/06/17 at 10:30 Al Hydrox/Mg Hydrox/Simethicone (Mag-Al Plus Susp Liq) 30 ml Q6H PRN PO DYSPEPSIA; Start 06/06/17 at 10:30 Nicotine (Habitrol 21 Mg Patch.24 Hr) 1 patch DAILY T-DERMAL Last administered on 06/07/17t 09:12; Start 06/07/17 at 09:00 Trazodone HCl (Desyrel) 50 mg HS PRN PO INSOMNIA; Start 06/06/17 at 10:30 Miscellaneous Information 1 DAILY T-DERMAL ; Start 06/07/17 at 09:00 Lamotrigine (LaMICtal) 400 mg DAILY PO ; Start 06/06/17 at 10:30; Stop at 18:52; Status DC Flumazenil (Romazicon Inj) 0.2 mg Q1M PRN IV PUSH SEE LABEL COMMENTS; Start at 10:30 Lorazepam (Ativan) 1 mg Q4H PRN PO CIWA 8 - 10; Start 06/06/17 at 10:30 Lorazepam (Ativan Inj) 1 mg Q4H PRN IV PUSH CIWA 8 - 10; Start 06/06/17 at 10: 30 Lorazepam (Ativan) 2 mg Q2H PRN PO CIWA 11-14; Start 06/06/17 at 10:30 Lorazepam (Ativan Inj) 2 mg Q2H PRN IV PUSH CIWA 11-14; Start 06/06/17 at 10: 30 Lorazepam (Ativan Inj) 2 mg Q1H PRN IV PUSH CIWA 15-20; Start 06/06/17 at 10: 30 Lorazepam (Ativan Inj) 2 mg Q15M PRN IV PUSH CIWA > 20; Start 06/06/17 at 10: 30 Pneumococcal Polyvalent Vaccine (Pneumovax-23 Inj) 25 mcg ONCE ONCE IM ; Start 06/07/17 at 10:00; Stop 06/07/17 at 10:01; Status DC Influenza Virus Vaccine (Flu (Quadrivalent) Vaccine Inj) 0.5 ml ONCE ONCE IM Last administered on 06/07/17 13:54; Start 06/07/17 at 10:00; Stop 06/07/17 at 10:01; Status DC Lamotrigine (LaMICtal) 200 mg ONCE@1815 PO Last administered on 06/06/17 18: 15; Start 06/07/17 at 18:15; Stop 06/07/17 at 20:00; Status DC Lamotrigine (LaMICtal) 400 mg DAILY PO Last administered on 06/07/17 09:13; Start 06/07/17 at 09:00 Risperidone (risperDAL M-TAB) 1 mg Q12HR PO Last administered on 06/07/17 20: 29; Start 06/07/17 at 10:15 Mupirocin (Bactroban 2% Cream) 1 applic Q12HR TOPICAL Last administered on 20:29; Start 06/07/17 at 21:00; Stop 06/12/17 at 21:00 A/P Assessment and Plan A/P -bipolar disorder with suicidal ideation- management per psych. - fairly recent fall with right humerus/ clavicle fracture- was evaluated by ortho at the time and recommended non-op treatment with outpatient f/u which he never did- ortho f/u appreciated; put on brace/ NWB- f/u as outpatient; PT/OT consulted. -low BP/ with dizziness; now BP is better and dizziness has resolved.denies chest pain. EKG with sinus bradycardia and LVH- advised to have more fluid intake- will check CBC and BMP today. continue to monitor BP closely. -reported black stools- H/H stable- will check the stool for blood- -abdominal pain- better- had a recent negative CT abdomen . -chronic wound on the left ankle- wound care evaluation appreciated; will start Bactroban ointment- f/u as outpatient. d/w the RN and . Abdias Pendleton MD Jun 08, 2017 08:47
[2017-06-08] MEDS: REMOVE OLD PATCH T-DERMAL SCH (09:00)
[2017-06-08] MEDS: MUPIROCIN 2% CREAM 15 GM TOPICAL SCH ×2 (09:00→20:16)
[2017-06-08] MEDS: NICOTINE 21 MG/24 HR PATCH T-DERMAL SCH (09:04)
[2017-06-08] MEDS: lamoTRIgine 100 MG TAB PO SCH (09:05)
[2017-06-08] MEDS: risperiDONE ODT 1 MG TAB PO SCH ×2 (09:05→20:16)
--- NOTE | 2017-06-08 09:59 | RADRPT ---
EXAM DATE/TIME: 06/08/2017 09:36 [facility] COMPARISON: HUMERUS RIGHT (MIN 2VWS), June 06, 2017, 13:47. INDICATIONS : Reevaluate fracture MEDICAL HISTORY : Cardiovascular disease. Bipolar.Spiral fracture right humerus. SURGICAL HISTORY : Cholecystectomy. hernia repair.Hernia repair.Neck surgery. ENCOUNTER: Subsequent ACUITY: 2 days PAIN SCORE: 8/10 LOCATION: Right Humerus. FINDINGS: Again seen is a comminuted spiral fracture of the mid humeral diaphysis. There is a change in the gonsalo earance of the humeral fracture when compared to the prior study. There is now 20 of angulation betw een the intermediate bone fragment and the distal bone fragment with apex towards the anteromedial as pect. There is some callus formation seen about the fracture site. No new fracture. Humeral heads int act. CONCLUSION: Change in the appearance of the comminuted humeral diaphyseal fracture now with 20 of angulation as detailed above. Moisés Sepulveda Jr., MD on June 08, 2017 at 9:53 Board Certified Radiologist. This report was verified electronically.
[2017-06-08 10:38] LABS: AUTOMATED NEUTROPHIL # 3.6 TH/MM3 (1.8-7.7); BASOPHIL % 0.5 % (0.0-2.0); EOSINOPHIL # 0.2 TH/MM3 (0-0.4); EOSINOPHIL % 3.3 % (0.0-4.0); HEMATOCRIT 39.9 % (39.0-51.0); HEMO FLAGS DIFF FINAL; LYMPH % 11.4 % (9.0-44.0); LYMPHOCYTE # 0.5 TH/MM3 (1.0-4.8); MEAN CELL VOLUME 97.7 FL (80.0-100.0); MEAN CORPUSCULAR HGB CONC 33.7 % (32.0-36.0); MONO % 9.5 % (0.0-8.0); NEUT % 75.3 % (16.0-70.0); PLATELET COUNT 180 TH/MM3 (150-450); RED BLOOD COUNT 4.09 MIL/MM3 (4.50-5.90); RED CELL DISTRIBUTION WIDTH 14.4 % (11.6-17.2); WHITE BLOOD COUNT 4.8 TH/MM3 (4.0-11.0)
[2017-06-08 10:55] LABS: BICARBONATE 30.3 MEQ/L (21.0-32.0); POTASSIUM 4.2 MEQ/L (3.5-5.1)
--- NOTE | 2017-06-08 13:16 | EKG ---
Date Performed: 06/08/2017 Time Performed: 07:53:00 PTAGE: 62 years EKG: SINUS BRADYCARDIA LEFT ANTERIOR FASCICULAR BLOCK MODERATE VOLTAGE CRITERIA FOR LVH, CONSIDE R NORMAL VARIANT Since previous tracing, no significant change noted ABNORMAL ECG PREVIOUS TRACING : 06/05/2017 06.39 DOCTOR: Haider Gillette Interpretating Date/Time 06/08/2017 13:14:35
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
[2017-06-08 16:44] VITALS: BP 122/67; PULSE 70; RESP 18; TEMP 98.2; O2SAT 100
[2017-06-08] MEDS: traZODone HCL 50 MG TAB PO PRN ×2 (20:16→20:41)
[2017-06-09 05:44] VITALS: BP 128/74; PULSE 77; RESP 18; TEMP 98.4; O2SAT 98
[2017-06-09] MEDS: risperiDONE ODT 1 MG TAB PO SCH (08:54)
[2017-06-09] MEDS: REMOVE OLD PATCH T-DERMAL SCH (08:54)
[2017-06-09] MEDS: NICOTINE 21 MG/24 HR PATCH T-DERMAL SCH (08:54)
[2017-06-09] MEDS: lamoTRIgine 100 MG TAB PO SCH (08:54)
[2017-06-09] MEDS: MUPIROCIN 2% CREAM 15 GM TOPICAL SCH ×2 (08:55→20:09)
--- NOTE | 2017-06-09 09:35 | HHI.PR ---
Subjective Remarks in no distress. overall feeling better. BP trend noted. d/w the RN and no acute issues over night. Objective Vitals Vital Signs Date Time Temp Pulse Resp B/P (MAP) Pulse Ox O2 Delivery O2 Flow Rate FiO2 06/09/17 05:44 98.4 77 18 128/74 (92) 98 06/08/17 16:44 98.2 70 18 122/67 (85) 100 Result Diagram: 06/08/17 1015 06/08/17 1015 Imaging Last Impressions Humerus X-Ray 06/08/17 0000 Signed Impressions: Service Date/Time: Thursday, June 08, 2017 09:36 - CONCLUSION: Change in the appearance of the comminuted humeral diaphyseal fracture now with 20 of angulation as detailed above. Moisés Sepulveda Jr., MD Objective Remarks GENERAL: This is a well-nourished, well-developed patient, in no apparent distress. CARDIOVASCULAR: Regular rate and regular rhythm without murmurs, gallops, or rubs. RESPIRATORY: Clear to auscultation. Breath sounds equal bilaterally. No wheezes , rales, or rhonchi. GASTROINTESTINAL: Abdomen soft, non-tender, nondistended. Normal, active bowel sounds MUSCULOSKELETAL: right upper extremity covered with clean dressing. NEURO: Alert & Oriented x4 to person, place, time, situation. Moves all ext x4 Medications and IVs Current Medications Ibuprofen (Motrin) 800 mg ONCE ONCE PO Last administered on 06/05/17 17:34; Start 06/05/17 at 16:45; Stop 06/05/17 at 16:46; Status DC Lorazepam (Ativan) 2 mg ONCE ONCE PO Last administered on 06/05/17 17:34; Start 06/05/17 at 17:00; Stop 06/05/17 at 17:01; Status DC Diphenhydramine HCl (Benadryl) 50 mg Q6H PRN PO For mild anxiety and/or EPS; Start 06/06/17 at 10:30; Stop 06/07/17 at 10:05; Status DC Diphenhydramine HCl (Benadryl Inj) 50 mg Q6H PRN IM For mild anxiety and/or EPS ; Start 06/06/17 at 10:30; Stop 06/07/17 at 10:05; Status DC Acetaminophen (Tylenol) 650 mg Q4H PRN PO Pain 1-5 or Temp >101F; Start at 10:30 Magnesium Hydroxide (Milk Of Magnesia Liq) 30 ml DAILY PRN PO CONSTIPATION; Start 06/06/17 at 10:30 Al Hydrox/Mg Hydrox/Simethicone (Mag-Al Plus Susp Liq) 30 ml Q6H PRN PO DYSPEPSIA; Start 06/06/17 at 10:30 Nicotine (Habitrol 21 Mg Patch.24 Hr) 1 patch DAILY T-DERMAL Last administered on 06/09/17 08:54; Start 06/07/17 at 09:00 Trazodone HCl (Desyrel) 50 mg HS PRN PO INSOMNIA Last administered on 20:41; Start 06/06/17 at 10:30 Miscellaneous Information 1 DAILY T-DERMAL Last administered on 06/09/17 08: 54; Start 06/07/17 at 09:00 Lamotrigine (LaMICtal) 400 mg DAILY PO ; Start 06/06/17 at 10:30; Stop at 18:52; Status DC Flumazenil (Romazicon Inj) 0.2 mg Q1M PRN IV PUSH SEE LABEL COMMENTS; Start at 10:30 Lorazepam (Ativan) 1 mg Q4H PRN PO CIWA 8 - 10; Start 06/06/17 at 10:30 Lorazepam (Ativan Inj) 1 mg Q4H PRN IV PUSH CIWA 8 - 10; Start 06/06/17 at 10: 30 Lorazepam (Ativan) 2 mg Q2H PRN PO CIWA 11-14; Start 06/06/17 at 10:30 Lorazepam (Ativan Inj) 2 mg Q2H PRN IV PUSH CIWA 11-14; Start 06/06/17 at 10: 30 Lorazepam (Ativan Inj) 2 mg Q1H PRN IV PUSH CIWA 15-20; Start 06/06/17 at 10: 30 Lorazepam (Ativan Inj) 2 mg Q15M PRN IV PUSH CIWA > 20; Start 06/06/17 at 10: 30 Pneumococcal Polyvalent Vaccine (Pneumovax-23 Inj) 25 mcg ONCE ONCE IM ; Start 06/07/17 at 10:00; Stop 06/07/17 at 10:01; Status DC Influenza Virus Vaccine (Flu (Quadrivalent) Vaccine Inj) 0.5 ml ONCE ONCE IM Last administered on 06/07/17 13:54; Start 06/07/17 at 10:00; Stop 06/07/17 at 10:01; Status DC Lamotrigine (LaMICtal) 200 mg ONCE@1815 PO Last administered on 06/06/17 18: 15; Start 06/07/17 at 18:15; Stop 06/07/17 at 20:00; Status DC Lamotrigine (LaMICtal) 400 mg DAILY PO Last administered on 06/09/17 08:54; Start 06/07/17 at 09:00 Risperidone (risperDAL M-TAB) 1 mg Q12HR PO Last administered on 06/09/17 08: 54; Start 06/07/17 at 10:15 Mupirocin (Bactroban 2% Cream) 1 applic Q12HR TOPICAL Last administered on 08:55; Start 06/07/17 at 21:00; Stop 06/12/17 at 21:00 A/P Assessment and Plan A/P -bipolar disorder with suicidal ideation- management per psych. - fairly recent fall with right humerus/ clavicle fracture- was evaluated by ortho at the time and recommended non-op treatment with outpatient f/u which he never did- ortho f/u appreciated; put on brace/ NWB- f/u as outpatient; PT/OT consulted. -low BP/ with dizziness; now BP is better and dizziness has resolved.denies chest pain. EKG with sinus bradycardia and LVH- advised to have more fluid intake- continue to monitor BP closely. -reported black stools- H/H stable- stool for blood negative. -abdominal pain- better- had a recent negative CT abdomen . -chronic wound on the left ankle- wound care evaluation appreciated; will start Bactroban ointment- f/u as outpatient. d/w the Abdias Villagomez MD Jun 09, 2017 09:35
[2017-06-09 10:20] VITALS: BP 90/58; PULSE 63
--- NOTE | 2017-06-09 14:44 | HHI.PYPN ---
Subjective Remarks Patient was seen and case discussed with nursing. Patient is blood pressures have been low. Medication was reviewed and it could be due to the Risperdal. He is complaining of being sleepy all the time is confirmed by nursing. Auditory hallucinations and visual hallucinations are resolved. Mood remains depressed but he denies suicidal or homicidal ideation intent or plan Mental Status Examination Appearance: Appropriate Consciousness: Alert Orientation: x4 Motor Activity: Normal gait Speech: Unremarkable Language: Adequate Fund of Knowledge: Adequate Attention and Concentration: Adequate Memory: Unremarkable Mood: Sad, Anxious Affect: Sad, Anxious Thought Process & Associations: Circumstantial, Tangential Thought Content: Bizarre thinking Hallucination Type: None Delusion Type: None Suicidal Ideation: No Suicidal Plan: No Suicidal Intention: No Homicidal Ideation: No Homicidal Plan: No Homicidal Intention: No Insight: Fair Judgment: Impulsive Results Labs Date/Time Source Procedure Growth Status 06/08/17 14:50 Stool Stool Stool Occult Blood (ALIN) - Final HEMOCCULT NEGATIVE Complete Vitals/IOs Vital Signs Date Time Temp Pulse Resp B/P (MAP) Pulse Ox O2 Delivery O2 Flow Rate FiO2 06/09/17 10:20 63 90/58 (69) 06/09/17 05:44 98.4 18 98 06/06/17 06:11 Room Air Assessment & Plan Problem List: (1) Adjustment disorder with mixed disturbance of emotions and conduct ICD Codes: F43.25 - Adjustment disorder with mixed disturbance of emotions and conduct Assessment & Plan Hold Risperdal. Start different antipsychotic tomorrow Justification for Cont. Inpt. Patient will decompensate in a less restrictive setting Request HC Surrog/Guard Advoc?: No Jose L Bhardwaj DO Jun 09, 2017 14:44
[2017-06-09 15:10] VITALS: BP 119/70; PULSE 70
[2017-06-09 18:37] VITALS: BP 125/74; PULSE 61; RESP 18; TEMP 98.3; O2SAT 98
[2017-06-09] MEDS: traZODone HCL 50 MG TAB PO PRN (20:09)
[2017-06-10 05:53] VITALS: BP 135/73; PULSE 71; RESP 17; TEMP 97.8; O2SAT 98
[2017-06-10] MEDS: MUPIROCIN 2% CREAM 15 GM TOPICAL SCH ×2 (09:00→21:44)
[2017-06-10] MEDS: REMOVE OLD PATCH T-DERMAL SCH (09:00)
[2017-06-10] MEDS: lamoTRIgine 100 MG TAB PO SCH (09:03)
[2017-06-10] MEDS: NICOTINE 21 MG/24 HR PATCH T-DERMAL SCH (09:04)
--- NOTE | 2017-06-10 10:08 | HHI.PR ---
Subjective Remarks sitting comfortably with no distress. pain is controlled. had one loose BM today- otherwise no other complaints. d/w the RN. Objective Vitals Vital Signs Date Time Temp Pulse Resp B/P (MAP) Pulse Ox O2 Delivery O2 Flow Rate FiO2 06/10/17 05:53 97.8 71 17 135/73 (93) 98 06/09/17 18:37 98.3 61 18 125/74 (91) 98 06/09/17 15:10 70 119/70 (86) 06/09/17 10:20 63 90/58 (69) Result Diagram: 06/08/17 1015 06/08/17 1015 Imaging Last Impressions Humerus X-Ray 06/08/17 0000 Signed Impressions: Service Date/Time: Thursday, June 08, 2017 09:36 - CONCLUSION: Change in the appearance of the comminuted humeral diaphyseal fracture now with 20 of angulation as detailed above. Moisés Sepulveda Jr., MD Objective Remarks GENERAL: This is a well-nourished, well-developed patient, in no apparent distress. CARDIOVASCULAR: Regular rate and regular rhythm without murmurs, gallops, or rubs. RESPIRATORY: Clear to auscultation. Breath sounds equal bilaterally. No wheezes , rales, or rhonchi. GASTROINTESTINAL: Abdomen soft, non-tender, nondistended. Normal, active bowel sounds MUSCULOSKELETAL: right upper extremity covered with clean dressing. NEURO: Alert & Oriented x4 to person, place, time, situation. Moves all ext x4 Medications and IVs Current Medications Ibuprofen (Motrin) 800 mg ONCE ONCE PO Last administered on 06/05/17 17:34; Start 06/05/17 at 16:45; Stop 06/05/17 at 16:46; Status DC Lorazepam (Ativan) 2 mg ONCE ONCE PO Last administered on 06/05/17 17:34; Start 06/05/17 at 17:00; Stop 06/05/17 at 17:01; Status DC Diphenhydramine HCl (Benadryl) 50 mg Q6H PRN PO For mild anxiety and/or EPS; Start 06/06/17 at 10:30; Stop 06/07/17 at 10:05; Status DC Diphenhydramine HCl (Benadryl Inj) 50 mg Q6H PRN IM For mild anxiety and/or EPS ; Start 06/06/17 at 10:30; Stop 06/07/17 at 10:05; Status DC Acetaminophen (Tylenol) 650 mg Q4H PRN PO Pain 1-5 or Temp >101F; Start at 10:30 Magnesium Hydroxide (Milk Of Magnesia Liq) 30 ml DAILY PRN PO CONSTIPATION; Start 06/06/17 at 10:30 Al Hydrox/Mg Hydrox/Simethicone (Mag-Al Plus Susp Liq) 30 ml Q6H PRN PO DYSPEPSIA; Start 06/06/17 at 10:30 Nicotine (Habitrol 21 Mg Patch.24 Hr) 1 patch DAILY T-DERMAL Last administered on 06/10/17 09:04; Start 06/07/17 at 09:00 Trazodone HCl (Desyrel) 50 mg HS PRN PO INSOMNIA Last administered on 20:09; Start 06/06/17 at 10:30 Miscellaneous Information 1 DAILY T-DERMAL Last administered on 06/10/17 09: 00; Start 06/07/17 at 09:00 Lamotrigine (LaMICtal) 400 mg DAILY PO ; Start 06/06/17 at 10:30; Stop at 18:52; Status DC Flumazenil (Romazicon Inj) 0.2 mg Q1M PRN IV PUSH SEE LABEL COMMENTS; Start at 10:30 Lorazepam (Ativan) 1 mg Q4H PRN PO CIWA 8 - 10; Start 06/06/17 at 10:30 Lorazepam (Ativan Inj) 1 mg Q4H PRN IV PUSH CIWA 8 - 10; Start 06/06/17 at 10: 30 Lorazepam (Ativan) 2 mg Q2H PRN PO CIWA 11-14; Start 06/06/17 at 10:30 Lorazepam (Ativan Inj) 2 mg Q2H PRN IV PUSH CIWA 11-14; Start 06/06/17 at 10: 30 Lorazepam (Ativan Inj) 2 mg Q1H PRN IV PUSH CIWA 15-20; Start 06/06/17 at 10: 30 Lorazepam (Ativan Inj) 2 mg Q15M PRN IV PUSH CIWA > 20; Start 06/06/17 at 10: 30 Pneumococcal Polyvalent Vaccine (Pneumovax-23 Inj) 25 mcg ONCE ONCE IM ; Start 06/07/17 at 10:00; Stop 06/07/17 at 10:01; Status DC Influenza Virus Vaccine (Flu (Quadrivalent) Vaccine Inj) 0.5 ml ONCE ONCE IM Last administered on 06/07/17 13:54; Start 06/07/17 at 10:00; Stop 06/07/17 at 10:01; Status DC Lamotrigine (LaMICtal) 200 mg ONCE@1815 PO Last administered on 06/06/17 18: 15; Start 06/07/17 at 18:15; Stop 06/07/17 at 20:00; Status DC Lamotrigine (LaMICtal) 400 mg DAILY PO Last administered on 06/10/17 09:03; Start 06/07/17 at 09:00 Risperidone (risperDAL M-TAB) 1 mg Q12HR PO Last administered on 06/09/17 08: 54; Start 06/07/17 at 10:15; Status Future Hold Mupirocin (Bactroban 2% Cream) 1 applic Q12HR TOPICAL Last administered on 09:00; Start 06/07/17 at 21:00; Stop 06/12/17 at 21:00 A/P Assessment and Plan A/P -bipolar disorder with suicidal ideation- management per psych. - fairly recent fall with right humerus/ clavicle fracture- was evaluated by ortho at the time and recommended non-op treatment with outpatient f/u which he never did- ortho f/u appreciated; put on brace/ NWB- f/u as outpatient; PT/OT consulted. -low BP/ with dizziness; now BP is better and dizziness has resolved.denies chest pain. EKG with sinus bradycardia and LVH- advised to have more fluid intake- -reported black stools- H/H stable- stool for blood negative. -one loose BM; will monitor for now. -abdominal pain- better- had a recent negative CT abdomen . -chronic wound on the left ankle- wound care evaluation appreciated; will start Bactroban ointment- f/u as outpatient. d/w the Abdias Villagomez MD Jun 10, 2017 10:08
--- NOTE | 2017-06-10 12:18 | HHI.PYPN ---
Subjective Remarks Patient was seen and case discussed with nursing. Patient says his cognition and lightheadedness has improved with the holding of his Risperdal. The hallucinations have not returned. He does admit to using Angela's or MDMA heavily before admission. Says his diarrhea has come back times two. Mood continues to improve Mental Status Examination Appearance: Appropriate Consciousness: Alert Orientation: x4 Motor Activity: Normal gait Speech: Unremarkable Language: Adequate Fund of Knowledge: Adequate Attention and Concentration: Adequate Memory: Unremarkable Mood: Sad, Anxious Affect: Anxious Thought Process & Associations: Circumstantial, Tangential Thought Content: Appropriate Hallucination Type: None Delusion Type: None Suicidal Ideation: No Suicidal Plan: No Suicidal Intention: No Homicidal Ideation: No Homicidal Plan: No Homicidal Intention: No Insight: Fair Judgment: Impulsive Results Labs Date/Time Source Procedure Growth Status 06/08/17 14:50 Stool Stool Stool Occult Blood (ALIN) - Final HEMOCCULT NEGATIVE Complete Vitals/IOs Vital Signs Date Time Temp Pulse Resp B/P (MAP) Pulse Ox O2 Delivery O2 Flow Rate FiO2 06/10/17 05:53 97.8 71 17 135/73 (93) 98 Assessment & Plan Problem List: (1) Adjustment disorder with mixed disturbance of emotions and conduct ICD Codes: F43.25 - Adjustment disorder with mixed disturbance of emotions and conduct Assessment & Plan DC Risperdal Justification for Cont. Inpt. Patient would decompensate in a less restrictive setting Request HC Surrog/Guard Advoc?: No Jose L Bhardwaj DO Jun 10, 2017 12:18
[2017-06-10 17:20] VITALS: BP 93/57; PULSE 61; RESP 16; TEMP 97.4; O2SAT 99
[2017-06-10] MEDS: traZODone HCL 50 MG TAB PO PRN (21:43)
[2017-06-11 05:57] VITALS: BP 107/55; PULSE 64; RESP 16; TEMP 98.4; O2SAT 98
[2017-06-11] MEDS: MUPIROCIN 2% CREAM 15 GM TOPICAL SCH ×2 (09:00→21:25)
[2017-06-11] MEDS: NICOTINE 21 MG/24 HR PATCH T-DERMAL SCH (09:00)
[2017-06-11] MEDS: REMOVE OLD PATCH T-DERMAL SCH (09:00)
[2017-06-11] MEDS: lamoTRIgine 100 MG TAB PO SCH (09:03)
--- NOTE | 2017-06-11 10:15 | HHI.PR ---
Subjective Remarks in no distress. pain is fairly controlled. had some diarrhea earlier. d/w the RN and no acute issues over night. Objective Vitals Vital Signs Date Time Temp Pulse Resp B/P (MAP) Pulse Ox O2 Delivery O2 Flow Rate FiO2 06/11/17 05:57 98.4 64 16 107/55 (72) 98 06/10/17 17:20 97.4 61 16 93/57 (69) 99 Result Diagram: 06/08/17 1015 06/08/17 1015 Imaging Last Impressions Humerus X-Ray 06/08/17 0000 Signed Impressions: Service Date/Time: Thursday, June 08, 2017 09:36 - CONCLUSION: Change in the appearance of the comminuted humeral diaphyseal fracture now with 20 of angulation as detailed above. Moisés Sepulveda Jr., MD Objective Remarks GENERAL: This is a well-nourished, well-developed patient, in no apparent distress. CARDIOVASCULAR: Regular rate and regular rhythm without murmurs, gallops, or rubs. RESPIRATORY: Clear to auscultation. Breath sounds equal bilaterally. No wheezes , rales, or rhonchi. GASTROINTESTINAL: Abdomen soft, non-tender, nondistended. Normal, active bowel sounds MUSCULOSKELETAL: right upper extremity covered with clean dressing. NEURO: Alert & Oriented x4 to person, place, time, situation. Moves all ext x4 Medications and IVs Current Medications Ibuprofen (Motrin) 800 mg ONCE ONCE PO Last administered on 06/05/17 17:34; Start 06/05/17 at 16:45; Stop 06/05/17 at 16:46; Status DC Lorazepam (Ativan) 2 mg ONCE ONCE PO Last administered on 06/05/17 17:34; Start 06/05/17 at 17:00; Stop 06/05/17 at 17:01; Status DC Diphenhydramine HCl (Benadryl) 50 mg Q6H PRN PO For mild anxiety and/or EPS; Start 06/06/17 at 10:30; Stop 06/07/17 at 10:05; Status DC Diphenhydramine HCl (Benadryl Inj) 50 mg Q6H PRN IM For mild anxiety and/or EPS ; Start 06/06/17 at 10:30; Stop 06/07/17 at 10:05; Status DC Acetaminophen (Tylenol) 650 mg Q4H PRN PO Pain 1-5 or Temp >101F; Start at 10:30 Magnesium Hydroxide (Milk Of Magnesia Liq) 30 ml DAILY PRN PO CONSTIPATION; Start 06/06/17 at 10:30 Al Hydrox/Mg Hydrox/Simethicone (Mag-Al Plus Susp Liq) 30 ml Q6H PRN PO DYSPEPSIA; Start 06/06/17 at 10:30 Nicotine (Habitrol 21 Mg Patch.24 Hr) 1 patch DAILY T-DERMAL Last administered on 06/11/17 09:00; Start 06/07/17 at 09:00 Trazodone HCl (Desyrel) 50 mg HS PRN PO INSOMNIA Last administered on 21:43; Start 06/06/17 at 10:30 Miscellaneous Information 1 DAILY T-DERMAL Last administered on 06/11/17 09: 00; Start 06/07/17 at 09:00 Lamotrigine (LaMICtal) 400 mg DAILY PO ; Start 06/06/17 at 10:30; Stop at 18:52; Status DC Flumazenil (Romazicon Inj) 0.2 mg Q1M PRN IV PUSH SEE LABEL COMMENTS; Start at 10:30 Lorazepam (Ativan) 1 mg Q4H PRN PO CIWA 8 - 10; Start 06/06/17 at 10:30 Lorazepam (Ativan Inj) 1 mg Q4H PRN IV PUSH CIWA 8 - 10; Start 06/06/17 at 10: 30 Lorazepam (Ativan) 2 mg Q2H PRN PO CIWA 11-14; Start 06/06/17 at 10:30 Lorazepam (Ativan Inj) 2 mg Q2H PRN IV PUSH CIWA 11-14; Start 06/06/17 at 10: 30 Lorazepam (Ativan Inj) 2 mg Q1H PRN IV PUSH CIWA 15-20; Start 06/06/17 at 10: 30 Lorazepam (Ativan Inj) 2 mg Q15M PRN IV PUSH CIWA > 20; Start 06/06/17 at 10: 30 Pneumococcal Polyvalent Vaccine (Pneumovax-23 Inj) 25 mcg ONCE ONCE IM ; Start 06/07/17 at 10:00; Stop 06/07/17 at 10:01; Status DC Influenza Virus Vaccine (Flu (Quadrivalent) Vaccine Inj) 0.5 ml ONCE ONCE IM Last administered on 06/07/17 13:54; Start 06/07/17 at 10:00; Stop 06/07/17 at 10:01; Status DC Lamotrigine (LaMICtal) 200 mg ONCE@1815 PO Last administered on 06/06/17 18: 15; Start 06/07/17 at 18:15; Stop 06/07/17 at 20:00; Status DC Lamotrigine (LaMICtal) 400 mg DAILY PO Last administered on 06/11/17 09:03; Start 06/07/17 at 09:00 Risperidone (risperDAL M-TAB) 1 mg Q12HR PO Last administered on 06/09/17 08: 54; Start 06/07/17 at 10:15; Stop 06/10/17 at 12:19; Status DC Mupirocin (Bactroban 2% Cream) 1 applic Q12HR TOPICAL Last administered on 09:00; Start 06/07/17 at 21:00; Stop 06/12/17 at 21:00 A/P Assessment and Plan A/P -bipolar disorder with suicidal ideation- management per psych. - fairly recent fall with right humerus/ clavicle fracture- was evaluated by ortho at the time and recommended non-op treatment with outpatient f/u which he never did- ortho f/u appreciated; put on brace/ NWB- f/u as outpatient; PT/OT consulted. -low BP/ with dizziness; now BP is better and dizziness has resolved.denies chest pain. EKG with sinus bradycardia and LVH- advised to have more fluid intake- -reported black stools- H/H stable- stool for blood negative. -diarrhea; check the stool for c-diff. -abdominal pain- better- had a recent negative CT abdomen . -chronic wound on the left ankle- wound care evaluation appreciated; will start Bactroban ointment- f/u as outpatient. d/w the Abdias Villagomez MD Jun 11, 2017 10:15
--- NOTE | 2017-06-11 10:55 | PD.TTN ---
Patient Problems 1. Discharge planning 2. Medication compliance 3. Knowledge deficit 4. Lack of coping skills Progress Toward Goals Provider Present: Dr. Maddison Carrion Provider Input: Pt medication regiment will continue to be evaluated and adjusted as necessary. Nurse(s) Present: Anel Dewitt RN Nurse(s) Input: Pt appears calm, cooperative, withdrawn, medication compliant and no behavioral problem on unit. Psychiatric Counselors Present: JAMES Melendez Group Spec/RT/OT/GUARDADO Present: Pj Tinoco OT Group Spec/RT/OT/GUARDADO Input: Pt attends 50% of groups with most of these being food related groups. Discharge Plan SMA Pt will be discharged home and will be provided with outpatient psychiatric follow up services for continued care after discharge. Documentation Scribe: JAMES Melendez Jonathan LMHC Jun 11, 2017 10:55
--- NOTE | 2017-06-11 13:23 | PD.TTN ---
Patient Problems 1. Discharge planning 2. Medication compliance 3. Knowledge deficit 4. Lack of coping skills Progress Toward Goals Provider Present: Dr. Maddison Carrion Provider Input: Pt medication regiment will continue to be evaluated and adjusted as necessary. Nurse(s) Present: Anel Dewitt RN Nurse(s) Input: Pt appears calm, cooperative, withdrawn, medication compliant and no behavioral problem on unit. Psychiatric Counselors Present: JAMES Melendez Psych Therapist Input: Patient appears depressed, withdrawn, cooperative, calm, appropriate and organized. He notes ongoing depression and numerous stressors which he feels are worsening his mood symptoms. Pt presents with fair insight into condition and need for care. He appears to be struggling with coping and emotional regulation skills at this time. He has been compliant with medication regiment and feels that it is helping him at this time. Pt is currently homeless and will need to be linked to services after discharge. Group Spec/RT/OT/GUARDADO Present: [facility] OT Group Spec/RT/OT/GUARDADO Input: Pt attends 50% of groups with most of these being food related groups. Discharge Plan SMA Pt will likely be discharged homeless and will be provided with outpatient psychiatric follow up services for continued care after discharge along with other homeless services including assistance with filling scripts. He will be linked to [facility] for additional services. Documentation Scribe: JAMES Melendez Jonathan LMHC Jun 11, 2017 13:22
--- NOTE | 2017-06-11 13:38 | HHI.PYPN ---
Subjective Remarks Patient seen in his room with nurse Anel, patient laying quietly in bed, chart review, patient compliant medications. Patient somewhat uncomfortable with a shoulder mobilizer on but we did discuss the purpose for it. He processes that fairly well. She is concerned about his increased diarrhea, we are in the before meals differential test done on now. He states his mood is is somewhat better he denies suicidality and homicidality at this time. Thus denies voices. He states the past he has had some fair results also with Wellbutrin. We will add Wellbutrin 150 mg of the SR to the regimen. However waiting results of the stool test Review of Systems Except as stated in HPI: all other systems reviewed are Neg Mental Status Examination Appearance: Appropriate Consciousness: Alert Orientation: x4 Motor Activity: Normal gait Speech: Unremarkable Language: Adequate Fund of Knowledge: Adequate Attention and Concentration: Adequate Memory: Unremarkable Mood: Sad, Anxious Affect: Anxious Thought Process & Associations: Circumstantial, Tangential Thought Content: Appropriate Hallucination Type: None Delusion Type: None Suicidal Ideation: No Suicidal Plan: No Suicidal Intention: No Homicidal Ideation: No Homicidal Plan: No Homicidal Intention: No Insight: Fair Judgment: Impulsive Results Labs Date/Time Source Procedure Growth Status 06/08/17 14:50 Stool Stool Stool Occult Blood (ALIN) - Final HEMOCCULT NEGATIVE Complete Vitals/IOs Vital Signs Date Time Temp Pulse Resp B/P (MAP) Pulse Ox O2 Delivery O2 Flow Rate FiO2 06/11/17 05:57 98.4 64 16 107/55 (72) 98 Assessment & Plan Problem List: (1) Adjustment disorder with mixed disturbance of emotions and conduct ICD Codes: F43.25 - Adjustment disorder with mixed disturbance of emotions and conduct Assessment & Plan Estimated LOS: days patient remains depressed but somewhat improved, but is concerning his part related to his loose bowel movements Justification for Cont. Inpt. At this time patient will decompensate if placed in a lower level of care Discharge Planning Patient homeless at this time he has very poor funding. Considering his fractured shoulder and clavicle placement may become difficult Request HC Surrog/Guard Advoc?: No Brenden Carrion MD Jun 11, 2017 13:37
[2017-06-11] MEDS: buPROPion HCL 150 MG SUSTAINED RELEASE TAB PO SCH (14:00)
[2017-06-11 18:25] VITALS: BP 107/60; PULSE 73; RESP 16; TEMP 98.2; O2SAT 97
[2017-06-11] MEDS: traZODone HCL 50 MG TAB PO PRN (21:25)
[2017-06-12 05:40] VITALS: BP 112/63; PULSE 64; RESP 16; TEMP 98.2; O2SAT 100
[2017-06-12] MEDS: REMOVE OLD PATCH T-DERMAL SCH (08:37)
[2017-06-12] MEDS: lamoTRIgine 100 MG TAB PO SCH (08:37)
[2017-06-12] MEDS: NICOTINE 21 MG/24 HR PATCH T-DERMAL SCH (08:37)
[2017-06-12] MEDS: buPROPion HCL 150 MG SUSTAINED RELEASE TAB PO SCH (08:37)
[2017-06-12] MEDS: MUPIROCIN 2% CREAM 15 GM TOPICAL SCH ×2 (09:00→20:39)
--- NOTE | 2017-06-12 11:46 | HHI.PR ---
Subjective Remarks in no acute distress. diarrhea has resolved. d/w the RN and no acute issues over night. Objective Vitals Vital Signs Date Time Temp Pulse Resp B/P (MAP) Pulse Ox O2 Delivery O2 Flow Rate FiO2 06/12/17 05:40 98.2 64 16 112/63 (79) 100 06/11/17 18:25 98.2 73 16 107/60 (76) 97 I/O 06/11/17 06/11/17 06/11/17 06/12/17 06/12/17 06/12/17 07:00 15:00 23:00 07:00 15:00 23:00 Intake Total 240 ml Balance 240 ml Intake Oral 240 ml Result Diagram: 06/08/17 1015 06/08/17 1015 Imaging Last Impressions Humerus X-Ray 06/08/17 0000 Signed Impressions: Service Date/Time: Thursday, June 08, 2017 09:36 - CONCLUSION: Change in the appearance of the comminuted humeral diaphyseal fracture now with 20 of angulation as detailed above. Moisés Sepulveda Jr., MD Objective Remarks GENERAL: This is a well-nourished, well-developed patient, in no apparent distress. CARDIOVASCULAR: Regular rate and regular rhythm without murmurs, gallops, or rubs. RESPIRATORY: Clear to auscultation. Breath sounds equal bilaterally. No wheezes , rales, or rhonchi. GASTROINTESTINAL: Abdomen soft, non-tender, nondistended. Normal, active bowel sounds MUSCULOSKELETAL: right upper extremity covered with clean dressing. NEURO: Alert & Oriented x4 to person, place, time, situation. Moves all ext x4 Medications and IVs Current Medications Ibuprofen (Motrin) 800 mg ONCE ONCE PO Last administered on 06/05/17 17:34; Start 06/05/17 at 16:45; Stop 06/05/17 at 16:46; Status DC Lorazepam (Ativan) 2 mg ONCE ONCE PO Last administered on 06/05/17 17:34; Start 06/05/17 at 17:00; Stop 06/05/17 at 17:01; Status DC Diphenhydramine HCl (Benadryl) 50 mg Q6H PRN PO For mild anxiety and/or EPS; Start 06/06/17 at 10:30; Stop 06/07/17 at 10:05; Status DC Diphenhydramine HCl (Benadryl Inj) 50 mg Q6H PRN IM For mild anxiety and/or EPS ; Start 06/06/17 at 10:30; Stop 06/07/17 at 10:05; Status DC Acetaminophen (Tylenol) 650 mg Q4H PRN PO Pain 1-5 or Temp >101F; Start at 10:30 Magnesium Hydroxide (Milk Of Magnesia Liq) 30 ml DAILY PRN PO CONSTIPATION; Start 06/06/17 at 10:30 Al Hydrox/Mg Hydrox/Simethicone (Mag-Al Plus Susp Liq) 30 ml Q6H PRN PO DYSPEPSIA; Start 06/06/17 at 10:30 Nicotine (Habitrol 21 Mg Patch.24 Hr) 1 patch DAILY T-DERMAL Last administered on 06/12/17 08:37; Start 06/07/17 at 09:00 Trazodone HCl (Desyrel) 50 mg HS PRN PO INSOMNIA Last administered on 21:25; Start 06/06/17 at 10:30 Miscellaneous Information 1 DAILY T-DERMAL Last administered on 06/12/17 08: 37; Start 06/07/17 at 09:00 Lamotrigine (LaMICtal) 400 mg DAILY PO ; Start 06/06/17 at 10:30; Stop at 18:52; Status DC Flumazenil (Romazicon Inj) 0.2 mg Q1M PRN IV PUSH SEE LABEL COMMENTS; Start at 10:30 Lorazepam (Ativan) 1 mg Q4H PRN PO CIWA 8 - 10; Start 06/06/17 at 10:30 Lorazepam (Ativan Inj) 1 mg Q4H PRN IV PUSH CIWA 8 - 10; Start 06/06/17 at 10: 30 Lorazepam (Ativan) 2 mg Q2H PRN PO CIWA 11-14; Start 06/06/17 at 10:30 Lorazepam (Ativan Inj) 2 mg Q2H PRN IV PUSH CIWA 11-14; Start 06/06/17 at 10: 30 Lorazepam (Ativan Inj) 2 mg Q1H PRN IV PUSH CIWA 15-20; Start 06/06/17 at 10: 30 Lorazepam (Ativan Inj) 2 mg Q15M PRN IV PUSH CIWA > 20; Start 06/06/17 at 10: 30 Pneumococcal Polyvalent Vaccine (Pneumovax-23 Inj) 25 mcg ONCE ONCE IM ; Start 06/07/17 at 10:00; Stop 06/07/17 at 10:01; Status DC Influenza Virus Vaccine (Flu (Quadrivalent) Vaccine Inj) 0.5 ml ONCE ONCE IM Last administered on 06/07/17 13:54; Start 06/07/17 at 10:00; Stop 06/07/17 at 10:01; Status DC Lamotrigine (LaMICtal) 200 mg ONCE@1815 PO Last administered on 06/06/17 18: 15; Start 06/07/17 at 18:15; Stop 06/07/17 at 20:00; Status DC Lamotrigine (LaMICtal) 400 mg DAILY PO Last administered on 06/12/17 08:37; Start 06/07/17 at 09:00 Risperidone (risperDAL M-TAB) 1 mg Q12HR PO Last administered on 06/09/17 08: 54; Start 06/07/17 at 10:15; Stop 06/10/17 at 12:19; Status DC Mupirocin (Bactroban 2% Cream) 1 applic Q12HR TOPICAL Last administered on 09:00; Start 06/07/17 at 21:00; Stop 06/12/17 at 21:00 Bupropion HCl (Wellbutrin Sr) 150 mg DAILY PO Last administered on 06/12/17 08:37; Start 06/11/17 at 14:00 A/P Assessment and Plan A/P -bipolar disorder with suicidal ideation- management per psych. - fairly recent fall with right humerus/ clavicle fracture- was evaluated by ortho at the time and recommended non-op treatment with outpatient f/u which he never did- ortho f/u appreciated; put on brace/ NWB- f/u as outpatient; PT/OT consulted. -low BP/ with dizziness; now BP is better and dizziness has resolved.denies chest pain. EKG with sinus bradycardia and LVH- advised to have more fluid intake- -reported black stools- H/H stable- stool for blood negative. -diarrhea; resolved. -abdominal pain- better- had a recent negative CT abdomen . -chronic wound on the left ankle- wound care evaluation appreciated; treated with Bactroban ointment- f/u as outpatient. [facility] will sign off and see him as needed. d/w the RN . Abdias Pendleton MD Jun 12, 2017 11:46
--- NOTE | 2017-06-12 12:49 | HHI.PYPN ---
Subjective Remarks Patient seen in his room with nurse Anel and medical student hanh, patient calm cooperative now denies suicidality voices or visions. He still is having some intermittent loose stools was unable to give us a specimen at this time, he remains homeless at this time placement may become problematic considering the restrictions of his activities with his right shoulder and arm being immobilized Review of Systems Except as stated in HPI: all other systems reviewed are Neg Mental Status Examination Appearance: Appropriate Consciousness: Alert Orientation: x4 Motor Activity: Normal gait Speech: Unremarkable Language: Adequate Fund of Knowledge: Adequate Attention and Concentration: Adequate Memory: Unremarkable Mood: Sad, Anxious Affect: Anxious Thought Process & Associations: Circumstantial, Tangential Thought Content: Appropriate Hallucination Type: None Delusion Type: None Suicidal Ideation: No Suicidal Plan: No Suicidal Intention: No Homicidal Ideation: No Homicidal Plan: No Homicidal Intention: No Insight: Fair Judgment: Impulsive Results Labs Date/Time Source Procedure Growth Status 06/08/17 14:50 Stool Stool Stool Occult Blood (ALIN) - Final HEMOCCULT NEGATIVE Complete Vitals/IOs Vital Signs Date Time Temp Pulse Resp B/P (MAP) Pulse Ox O2 Delivery O2 Flow Rate FiO2 06/12/17 05:40 98.2 64 16 112/63 (79) 100 Intake and Output 06/12/17 06/12/17 06/13/17 08:00 16:00 00:00 Intake Total 240 ml Balance 240 ml Assessment & Plan Problem List: (1) Adjustment disorder with mixed disturbance of emotions and conduct ICD Codes: F43.25 - Adjustment disorder with mixed disturbance of emotions and conduct Assessment & Plan Estimated LOS: days patient's mood improving denies suicidality of voices at this time. Is compliant medication. Continue to work further testing of his stool, placement may become problematic Justification for Cont. Inpt. At this time patient will decompensate of placed a lower level of care Discharge Planning Placement may be problematic Request HC Surrog/Guard Advoc?: Brenden Dawn MD Jun 12, 2017 12:49
[2017-06-12 18:08] VITALS: BP 83/51; PULSE 72; RESP 18; TEMP 98.2; O2SAT 84
[2017-06-13 05:46] VITALS: BP 131/70; PULSE 56; RESP 18; TEMP 98.6
[2017-06-13] MEDS: buPROPion HCL 150 MG SUSTAINED RELEASE TAB PO SCH (08:03)
[2017-06-13] MEDS: lamoTRIgine 100 MG TAB PO SCH (08:03)
[2017-06-13] MEDS: NICOTINE 21 MG/24 HR PATCH T-DERMAL SCH (08:11)
[2017-06-13] MEDS: REMOVE OLD PATCH T-DERMAL SCH (08:11)
--- NOTE | 2017-06-13 09:50 | PD.TTN ---
Patient Problems 1. Discharge planning 2. Medication compliance 3. Knowledge deficit 4. Lack of coping skills Progress Toward Goals Provider Present: Dr. Maddison Carrion Provider Input: Pt medication regiment will continue to be evaluated and adjusted as necessary. 06/13 Pt is showing some improvement on medication regiment yet still meets criteria. Regiment will continue to be evaluated and changed to assist with stabilization. Nurse(s) Present: Anel Dewitt RN Nurse(s) Input: Pt appears calm, cooperative, withdrawn, medication compliant and no behavioral problem on unit. 06/13- Kay Duffy RN Pt continues to appear depressed and withdrawn to self but he is eating and taking care of his ADLs. Pt appears pleasant and has been no behavioral problem. He is medication compliant. Psychiatric Counselors Present: JAMES Melendez Psych Therapist Input: Patient appears depressed, withdrawn, cooperative, calm, appropriate and organized. He notes ongoing depression and numerous stressors which he feels are worsening his mood symptoms. Pt presents with fair insight into condition and need for care. He appears to be struggling with coping and emotional regulation skills at this time. He has been compliant with medication regiment and feels that it is helping him at this time. Pt is currently homeless and will need to be linked to services after discharge. 06/13- Pt continues to appear depressed, overwhelmed by stressors, withdrawn to self, cooperative, appropriate and oriented. He is showing improvement in his coping and emotional regulation skills as he appears to be managing his depression more effectively. Insight into condition and need for care appears to be improving as well. He remains compliant with treatment and his medication. Group Spec/RT/OT/GUARDADO Present: GEO Cruz, Pj Tinoco OT Group Spec/RT/OT/GUARDADO Input: Pt attends 50% of groups with most of these being food related groups. 06/13- GEO Cruz Pt attends most groups appropriately. He uses one hand technique and is progressing. Discharge Plan SMA Pt will likely be discharged homeless and will be provided with outpatient psychiatric follow up services for continued care after discharge along with other homeless services including assistance with filling scripts. He will be [facility] to [facility] for additional [facility]. Documentation Scribe: JAMES Melendez Jonathan LMHC Jun 13, 2017 09:50
--- NOTE | 2017-06-13 13:24 | HHI.PYPN ---
Subjective Remarks Patient seen in day room with floor staff. Chart reviewed. Patient compliant medication. Patient states sleep is somewhat better, he denies suicidality homicidality voices or visions. Placement Is still remains somewhat problematic for now continue treatment Review of Systems Except as stated in HPI: all other systems reviewed are Neg Mental Status Examination Appearance: Appropriate Consciousness: Alert Orientation: x4 Motor Activity: Normal gait Speech: Unremarkable Language: Adequate Fund of Knowledge: Adequate Attention and Concentration: Adequate Memory: Unremarkable Mood: Sad (mildly dysphoric) Affect: Other (good range and intensity) Thought Process & Associations: Circumstantial (improved), Tangential (improved ) Thought Content: Appropriate Hallucination Type: None Delusion Type: None Suicidal Ideation: No Suicidal Plan: No Suicidal Intention: No Homicidal Ideation: No Homicidal Plan: No Homicidal Intention: No Insight: Fair Judgment: Impulsive Results Labs Date/Time Source Procedure Growth Status 06/08/17 14:50 Stool Stool Stool Occult Blood (ALIN) - Final HEMOCCULT NEGATIVE Complete Vitals/IOs Vital Signs Date Time Temp Pulse Resp B/P (MAP) Pulse Ox O2 Delivery O2 Flow Rate FiO2 06/13/17 05:46 98.6 56 18 131/70 (90) 06/12/17 18:08 84 Assessment & Plan Problem List: (1) Adjustment disorder with mixed disturbance of emotions and conduct ICD Codes: F43.25 - Adjustment disorder with mixed disturbance of emotions and conduct Assessment & Plan Estimated LOS: days patient mood somewhat improved, compliant medication continues to show some anxiety related to placement issues Justification for Cont. Inpt. At this time patient will decompensate placed a lower level of care Discharge Planning Is to be determined patient appears homeless at the present time Request HC Surrog/Guard Advoc?: No Brenden Carrion MD Jun 13, 2017 13:24
[2017-06-13 16:51] LABS: C. DIFF EPI 027 PRESUMPTIVE NEGATIVE (NEGATIVE)
[2017-06-13 17:03] VITALS: BP 99/58; PULSE 60; RESP 18; TEMP 98.2; O2SAT 98
[2017-06-14] MEDS: traZODone HCL 50 MG TAB PO PRN ×2 (02:04→20:25)
[2017-06-14 05:43] VITALS: BP 113/16; PULSE 58; RESP 16; TEMP 98.4; O2SAT 100
[2017-06-14] MEDS: REMOVE OLD PATCH T-DERMAL SCH (09:00)
[2017-06-14] MEDS: NICOTINE 21 MG/24 HR PATCH T-DERMAL SCH (09:00)
[2017-06-14] MEDS: buPROPion HCL 150 MG SUSTAINED RELEASE TAB PO SCH (09:20)
[2017-06-14] MEDS: lamoTRIgine 100 MG TAB PO SCH (09:20)
--- NOTE | 2017-06-14 13:21 | HHI.PYPN ---
Subjective Remarks Patient seen in his room with nurse Kizzy and medical student Melvin. Patient calm cooperative showing some improvement in his affect and his mood. This some focus still on his anal functioning stating today that he "broke weekend that was a little bloody" it appears his stools are improving. The C. difficile culture was negative. He denies suicidality homicidality voices or visions. He is concerned about placement issues considering the limitations on his ability to care for himself due to the right shoulder immobilizer. For now continue treatment Review of Systems Except as stated in HPI: all other systems reviewed are Neg Mental Status Examination Appearance: Appropriate Consciousness: Alert Orientation: x4 Motor Activity: Normal gait Speech: Unremarkable Language: Adequate Fund of Knowledge: Adequate Attention and Concentration: Adequate Memory: Unremarkable Mood: Sad (mildly dysphoric) Affect: Other (good range and intensity) Thought Process & Associations: Circumstantial (improved), Tangential (improved ) Thought Content: Appropriate Hallucination Type: None Delusion Type: None Suicidal Ideation: No Suicidal Plan: No Suicidal Intention: No Homicidal Ideation: No Homicidal Plan: No Homicidal Intention: No Insight: Fair Judgment: Impulsive Results Labs Test 06/13/17 14:55 Stool C. difficile Toxin (PCR) NEGATIVE Stl C. difficile Toxin Epiderm 027 PRESUMPTIVE NEGATIVE Date/Time Source Procedure Growth Status 06/08/17 14:50 Stool Stool Stool Occult Blood (ALIN) - Final HEMOCCULT NEGATIVE Complete Vitals/IOs Vital Signs Date Time Temp Pulse Resp B/P (MAP) Pulse Ox O2 Delivery O2 Flow Rate FiO2 06/14/17 05:43 98.4 58 16 113/16 (48) 100 Assessment & Plan Problem List: (1) Adjustment disorder with mixed disturbance of emotions and conduct ICD Codes: F43.25 - Adjustment disorder with mixed disturbance of emotions and conduct Assessment & Plan Estimated LOS: days patient showing some improvement in mood and affect. Is compliant with medications. Still some focus on bowel movements and anal functioning. For now continue treatment Justification for Cont. Inpt. With this time patient will decompensate if placed at a lower level of care Discharge Planning Placement may be difficult he is homeless is very little in the way of income. And there is some significant restriction in his ability to care for himself with his shoulder immobilizer Request HC Surrog/Guard Advoc?: No Brenden Carrion MD Jun 14, 2017 13:21
[2017-06-14 18:17] VITALS: BP 103/67; PULSE 56; RESP 17; TEMP 97.7; O2SAT 99
[2017-06-15 05:55] VITALS: BP 133/70; PULSE 58; RESP 16; TEMP 98; O2SAT 98
[2017-06-15] MEDS: buPROPion HCL 150 MG SUSTAINED RELEASE TAB PO SCH (08:43)
[2017-06-15] MEDS: lamoTRIgine 100 MG TAB PO SCH (08:44)
[2017-06-15] MEDS: NICOTINE 21 MG/24 HR PATCH T-DERMAL SCH (08:47)
[2017-06-15] MEDS: REMOVE OLD PATCH T-DERMAL SCH (08:47)
--- NOTE | 2017-06-15 14:52 | HHI.PYPN ---
Subjective Remarks Patient seen in day room with medical student hanh, his mood is improving there is better eye contact now denies suicidality of voices, though he is becoming somewhat more demanding and manipulative. Today as the if we had [place] could help him with his disability claim. He continues somewhat unsure about placement when he leaves here. Is compliant with medication. For now continue treatment patient has been cleared of his C. difficile possibility. Will discontinue isolation precautions Review of Systems Except as stated in HPI: all other systems reviewed are Neg Mental Status Examination Appearance: Appropriate Consciousness: Alert Orientation: x4 Motor Activity: Normal gait Speech: Unremarkable Language: Adequate Fund of Knowledge: Adequate Attention and Concentration: Adequate Memory: Unremarkable Mood: Sad (mildly dysphoric) Affect: Other (good range and intensity) Thought Process & Associations: Circumstantial (improved), Tangential (improved ) Thought Content: Appropriate Hallucination Type: None Delusion Type: None Suicidal Ideation: No Suicidal Plan: No Suicidal Intention: No Homicidal Ideation: No Homicidal Plan: No Homicidal Intention: No Insight: Fair Judgment: Impulsive Results Labs Date/Time Source Procedure Growth Status 06/08/17 14:50 Stool Stool Stool Occult Blood (ALIN) - Final HEMOCCULT NEGATIVE Complete Vitals/IOs Vital Signs Date Time Temp Pulse Resp B/P (MAP) Pulse Ox O2 Delivery O2 Flow Rate FiO2 06/15/17 05:55 98.0 58 16 133/70 (91) 98 Intake and Output 06/15/17 06/15/17 06/15/17 07:59 15:59 23:59 Intake Total 360 ml Balance 360 ml Assessment & Plan Problem List: (1) Adjustment disorder with mixed disturbance of emotions and conduct ICD Codes: F43.25 - Adjustment disorder with mixed disturbance of emotions and conduct Assessment & Plan Estimated LOS: days patient mood is somewhat improving, patient showing more concern and perhaps manipulation related to discharge placement and desire to get on disability Justification for Cont. Inpt. This time patient will decompensate if not placed in an appropriate level of care Discharge Planning Considering patient's fractured right arm and loss of mobility with that placement remains problematic Request HC Surrog/Guard Advoc?: No Brenden Carrion MD Jun 15, 2017 14:52
[2017-06-15 17:40] VITALS: BP 126/73; PULSE 98; RESP 18; TEMP 97.9; O2SAT 98
[2017-06-15] MEDS: traZODone HCL 50 MG TAB PO PRN (21:44)
[2017-06-16 06:00] VITALS: BP 136/69; PULSE 57; RESP 18; TEMP 98.1; O2SAT 99
[2017-06-16] MEDS: REMOVE OLD PATCH T-DERMAL SCH (08:44)
[2017-06-16] MEDS: buPROPion HCL 150 MG SUSTAINED RELEASE TAB PO SCH (08:44)
[2017-06-16] MEDS: lamoTRIgine 100 MG TAB PO SCH (08:44)
[2017-06-16] MEDS: NICOTINE 21 MG/24 HR PATCH T-DERMAL SCH (08:45)
--- NOTE | 2017-06-16 13:43 | HHI.PYPN ---
Subjective Remarks Pt seen and discussed with staff. He has been compliant and cooperative with treatment. No medication side effects.No behavioral problems on unit. Mood is improved and he denies SI/HI today. Mental Status Examination Appearance: Appropriate Consciousness: Alert Orientation: x4 Motor Activity: Normal gait Speech: Unremarkable Language: Adequate Fund of Knowledge: Adequate Attention and Concentration: Adequate Memory: Unremarkable Affect: Appropriate, Other (good range and intensity) Thought Process & Associations: Linear, Tangential (improved) Thought Content: Appropriate Hallucination Type: None Delusion Type: None Suicidal Ideation: No Suicidal Plan: No Suicidal Intention: No Homicidal Ideation: No Homicidal Plan: No Homicidal Intention: No Insight: Fair Judgment: Impulsive Results Labs Date/Time Source Procedure Growth Status 06/08/17 14:50 Stool Stool Stool Occult Blood (ALIN) - Final HEMOCCULT NEGATIVE Complete Vitals/IOs Vital Signs Date Time Temp Pulse Resp B/P (MAP) Pulse Ox O2 Delivery O2 Flow Rate FiO2 06/16/17 06:00 98.1 57 18 136/69 (91) 99 Assessment & Plan Problem List: (1) Adjustment disorder with mixed disturbance of emotions and conduct ICD Codes: F43.25 - Adjustment disorder with mixed disturbance of emotions and conduct Assessment & Plan PT improving. Continue current tx plan. Estimated LOS: days Justification for Cont. Inpt. risk of decompensation Request HC Surrog/Guard Advoc?: Amelie Jasso MD Jun 16, 2017 13:43
[2017-06-16 17:25] VITALS: BP 86/52; PULSE 56; RESP 18; TEMP 98.2; O2SAT 96
[2017-06-16] MEDS: traZODone HCL 50 MG TAB PO PRN (20:15)
[2017-06-17 06:03] VITALS: BP 113/65; PULSE 54; RESP 18; TEMP 98.2; O2SAT 98
[2017-06-17] MEDS: NICOTINE 21 MG/24 HR PATCH T-DERMAL SCH (09:00)
[2017-06-17] MEDS: REMOVE OLD PATCH T-DERMAL SCH (09:00)
[2017-06-17] MEDS: buPROPion HCL 150 MG SUSTAINED RELEASE TAB PO SCH (09:00)
[2017-06-17] MEDS: lamoTRIgine 100 MG TAB PO SCH (09:00)
--- NOTE | 2017-06-17 12:55 | HHI.PYPN ---
Subjective Remarks Pt seen and discussed with staff. No behavioral problems overnight. Compliant with medications. Less anxious today. No SI/HI Mental Status Examination Appearance: Appropriate Consciousness: Alert Orientation: x4 Motor Activity: Normal gait Speech: Unremarkable Language: Adequate Fund of Knowledge: Adequate Attention and Concentration: Adequate Memory: Unremarkable Affect: Appropriate, Other (good range and intensity) Thought Process & Associations: Linear, Tangential (improved) Thought Content: Appropriate Hallucination Type: None Delusion Type: None Suicidal Ideation: No Suicidal Plan: No Suicidal Intention: No Homicidal Ideation: No Homicidal Plan: No Homicidal Intention: No Insight: Fair Judgment: Impulsive Results Labs Date/Time Source Procedure Growth Status 06/08/17 14:50 Stool Stool Stool Occult Blood (ALIN) - Final HEMOCCULT NEGATIVE Complete Vitals/IOs Vital Signs Date Time Temp Pulse Resp B/P (MAP) Pulse Ox O2 Delivery O2 Flow Rate FiO2 06/17/17 06:03 98.2 54 18 113/65 (81) 98 Assessment & Plan Problem List: (1) Adjustment disorder with mixed disturbance of emotions and conduct ICD Codes: F43.25 - Adjustment disorder with mixed disturbance of emotions and conduct Assessment & Plan Pt improving. Continue current tx plan and discharge planning Estimated LOS: days Justification for Cont. Inpt. risk of decompensation Request HC Surrog/Guard Advoc?: Amelie Jasso MD Jun 17, 2017 12:55
[2017-06-17 17:04] VITALS: BP 100/58; PULSE 57; RESP 17; TEMP 98.4; O2SAT 99
[2017-06-17] MEDS: traZODone HCL 50 MG TAB PO PRN (20:35)
[2017-06-18 06:35] VITALS: BP 120/65; PULSE 57; RESP 17; TEMP 97.9; O2SAT 97
[2017-06-18] MEDS: buPROPion HCL 150 MG SUSTAINED RELEASE TAB PO SCH (08:08)
[2017-06-18] MEDS: lamoTRIgine 100 MG TAB PO SCH (08:08)
[2017-06-18] MEDS: NICOTINE 21 MG/24 HR PATCH T-DERMAL SCH (08:09)
[2017-06-18] MEDS: REMOVE OLD PATCH T-DERMAL SCH (08:09)
--- NOTE | 2017-06-18 11:29 | PD.TTN ---
Patient Problems 1. Discharge planning 2. Medication compliance 3. Knowledge deficit 4. Lack of coping skills Progress Toward Goals Provider Present: Dr. Maddison Carrion Provider Input: Pt medication regiment will continue to be evaluated and adjusted as necessary. 06/13 Pt is showing some improvement on medication regiment yet still meets criteria. Regiment will continue to be evaluated and changed to assist with stabilization. 06/18- Pt medication regiment continues to be evaluated and any necessary changes will be made. Nurse(s) Present: Anel Dewitt RN Nurse(s) Input: Pt appears calm, cooperative, withdrawn, medication compliant and no behavioral problem on unit. 06/13- Kay Duffy RN Pt continues to appear depressed and withdrawn to self but he is eating and taking care of his ADLs. Pt appears pleasant and has been no behavioral problem. He is medication compliant. 06/18- Teresita Segovia RN Pt is visible on unit, eating meals, compliant with medication regiment and has been no behavioral issue. Pt continues to appear depressed and overwhelmed. Psychiatric Counselors Present: Jose Blanchard [facility] Psych Therapist Input: Patient appears depressed, withdrawn, cooperative, calm, appropriate and organized. He notes ongoing depression and numerous stressors which he feels are worsening his mood symptoms. Pt presents with fair insight into condition and need for care. He appears to be struggling with coping and emotional regulation skills at this time. He has been compliant with medication regiment and feels that it is helping him at this time. Pt is currently homeless and will need to be linked to services after discharge. 06/13- Pt continues to appear depressed, overwhelmed by stressors, withdrawn to self, cooperative, appropriate and oriented. He is showing improvement in his coping and emotional regulation skills as he appears to be managing his depression more effectively. Insight into condition and need for care appears to be improving as well. He remains compliant with treatment and his medication. 06/18- Pt continues to appear depressed, stressed and overwhelmed by circumstances awaiting him outside of hospital. He is visible on unit and cooperative yet appears to remain withdrawn to self. He is compliant with medication regiment. Insight remains fair into condition and need for care. Pt appears to struggle to implement coping and emotional regulation skills to assist him in managing his stress. Group Spec/RT/OT/GUARDADO Present: GEO Cruz, Pj Tinoco, OT Group Spec/RT/OT/GUARDADO Input: Pt attends 50% of groups with most of these being food related groups. 06/13- GEO Cruz Pt attends most groups appropriately. He uses one hand technique and is progressing. 06/18- GEO Cruz Pt atetnds most groups and is appropriate as well as pleasant. Discharge Plan SMA Pt will likely be discharged homeless and will be provided with outpatient psychiatric follow up services for continued care after discharge along with other homeless services including assistance with filling scripts. He will be linked to [facility] for additional services. Documentation Scribe: JAMES Melendez Jonathan LMHC Jun 18, 2017 11:29
--- NOTE | 2017-06-18 15:18 | HHI.PYPN ---
Subjective Remarks Patient seen in day room with floor staff, chart reviewed, patient compliant medication. Patient denies suicidality homicidality voices or visions. He continues to show concern about placement issues this of vague dislocation of entitlement with this. This time we'll transfer patient to [facility] feels could benefit from the structure and the programming Review of Systems Except as stated in HPI: all other systems reviewed are Neg Mental Status Examination Appearance: Appropriate Consciousness: Alert Orientation: x4 Motor Activity: Normal gait Speech: Unremarkable Language: Adequate Fund of Knowledge: Adequate Attention and Concentration: Adequate Memory: Unremarkable Affect: Appropriate, Other (good range and intensity) Thought Process & Associations: Linear, Tangential (improved) Thought Content: Appropriate Hallucination Type: None Delusion Type: None Suicidal Ideation: No Suicidal Plan: No Suicidal Intention: No Homicidal Ideation: No Homicidal Plan: No Homicidal Intention: No Insight: Fair Judgment: Impulsive Results Labs Date/Time Source Procedure Growth Status 06/08/17 14:50 Stool Stool Stool Occult Blood (ALIN) - Final HEMOCCULT NEGATIVE Complete Vitals/IOs Vital Signs Date Time Temp Pulse Resp B/P (MAP) Pulse Ox O2 Delivery O2 Flow Rate FiO2 06/18/17 06:35 97.9 57 17 120/65 (83) 97 Assessment & Plan Problem List: (1) Adjustment disorder with mixed disturbance of emotions and conduct ICD Codes: F43.25 - Adjustment disorder with mixed disturbance of emotions and conduct Assessment & Plan Estimated LOS: days patient continue somewhat depressed though is improving, denying suicidality homicidality voices or visions at this time. Will transfer patient to [facility] I feel he would benefit from increased programming therapy in milieu. Continue to work on placement issues Justification for Cont. Inpt. At this time patient will decompensate a placed a lower level of care Discharge Planning Placement continues remain problematic due to patient's continued splinting of his right upper extremity Request HC Surrog/Guard Advoc?: No Brenden Carrion MD Jun 18, 2017 15:18
[2017-06-18 18:00] VITALS: BP 101/64; PULSE 59; RESP 18; TEMP 97.9; O2SAT 98
[2017-06-18] MEDS: traZODone HCL 50 MG TAB PO PRN (21:33)
[2017-06-19 05:52] VITALS: BP 116/66; PULSE 60; RESP 18; TEMP 97.7; O2SAT 98
[2017-06-19] MEDS: lamoTRIgine 100 MG TAB PO SCH (08:38)
[2017-06-19] MEDS: buPROPion HCL 150 MG SUSTAINED RELEASE TAB PO SCH (08:38)
[2017-06-19] MEDS: NICOTINE 21 MG/24 HR PATCH T-DERMAL SCH (08:43)
[2017-06-19] MEDS: REMOVE OLD PATCH T-DERMAL SCH (08:43)
--- NOTE | 2017-06-19 12:41 | HHI.PYPN ---
Subjective Remarks Patient seen in [facility] with nurse Mitch. Chart reviewed. Patient compliant medication. Patient now denies suicidality homicidality voices or visions. Is still showing concern about placement issues in his ability to live in a homeless situation with the significant restrictions of his right arm being splinted. He is also complaining of some discomfort with a splinter around his shoulder. Although the Ortho rock assess the splint. For now continue medication no change Review of Systems Musculoskeletal: COMPLAINS OF: Joint pain (patient complaining of some right shoulder pain with wearing of this restrictive splint) Except as stated in HPI: all other systems reviewed are Neg Mental Status Examination Appearance: Appropriate Consciousness: Alert Orientation: x4 Motor Activity: Normal gait Speech: Unremarkable Language: Adequate Fund of Knowledge: Adequate Attention and Concentration: Adequate Memory: Unremarkable Affect: Appropriate, Other (good range and intensity) Thought Process & Associations: Linear, Tangential (improved) Thought Content: Appropriate Hallucination Type: None Delusion Type: None Suicidal Ideation: No Suicidal Plan: No Suicidal Intention: No Homicidal Ideation: No Homicidal Plan: No Homicidal Intention: No Insight: Fair Judgment: Impulsive Results Labs Date/Time Source Procedure Growth Status 06/08/17 14:50 Stool Stool Stool Occult Blood (ALIN) - Final HEMOCCULT NEGATIVE Complete Vitals/IOs Vital Signs Date Time Temp Pulse Resp B/P (MAP) Pulse Ox O2 Delivery O2 Flow Rate FiO2 06/19/17 05:52 97.7 60 18 116/66 (83) 98 Assessment & Plan Problem List: (1) Adjustment disorder with mixed disturbance of emotions and conduct ICD Codes: F43.25 - Adjustment disorder with mixed disturbance of emotions and conduct Assessment & Plan Estimated LOS: days patient continues depressed but somewhat softer. There is some mild increase anxiety related to placement issues. Also have orthostatic tach check patient splint Justification for Cont. Inpt. At this time patient will decompensate placed in a lower level of care Discharge Planning Placement issues somewhat complicated by patient's right upper extremity splint Request HC Surrog/Guard Advoc?: No Brenden Carrion MD Jun 19, 2017 12:41
[2017-06-19 18:34] VITALS: BP 114/66; PULSE 60; RESP 18; TEMP 98.3; O2SAT 98
[2017-06-19] MEDS: traZODone HCL 50 MG TAB PO PRN (20:12)
[2017-06-20 05:34] VITALS: BP 103/56; PULSE 57; RESP 17; TEMP 97.9; O2SAT 95
[2017-06-20] MEDS: REMOVE OLD PATCH T-DERMAL SCH (09:00)
[2017-06-20] MEDS: NICOTINE 21 MG/24 HR PATCH T-DERMAL SCH (09:00)
[2017-06-20] MEDS: buPROPion HCL 150 MG SUSTAINED RELEASE TAB PO SCH (09:34)
[2017-06-20] MEDS: lamoTRIgine 100 MG TAB PO SCH (09:34)
--- NOTE | 2017-06-20 13:42 | HHI.PYPN ---
Subjective Remarks Patient seen in [place] with counselor Elsa, patient calm cooperative showing some increased processing it insight into the difficulty she is having related to his funding and placement issues. We did discuss alternatives perhaps a sober house or so type of rehabilitation facility. In any event patient also needs consider the possibility of a homeless discharge with [facility] the [facility]. He appears to be willing to except that also. For now continue treatment Review of Systems Except as stated in HPI: all other systems reviewed are Neg Mental Status Examination Appearance: Appropriate Consciousness: Alert Orientation: x4 Motor Activity: Normal gait Speech: Unremarkable Language: Adequate Fund of Knowledge: Adequate Attention and Concentration: Adequate Memory: Unremarkable Affect: Appropriate, Other (good range and intensity) Thought Process & Associations: Linear, Tangential (improved) Thought Content: Appropriate Hallucination Type: None Delusion Type: None Suicidal Ideation: No Suicidal Plan: No Suicidal Intention: No Homicidal Ideation: No Homicidal Plan: No Homicidal Intention: No Insight: Fair Judgment: Impulsive Results Labs Date/Time Source Procedure Growth Status 06/08/17 14:50 Stool Stool Stool Occult Blood (ALIN) - Final HEMOCCULT NEGATIVE Complete Vitals/IOs Vital Signs Date Time Temp Pulse Resp B/P (MAP) Pulse Ox O2 Delivery O2 Flow Rate FiO2 06/20/17 05:34 97.9 57 17 103/56 (72) 95 Assessment & Plan Problem List: (1) Adjustment disorder with mixed disturbance of emotions and conduct ICD Codes: F43.25 - Adjustment disorder with mixed disturbance of emotions and conduct Assessment & Plan Estimated LOS: days patient's mood improving, denies suicidality homicidality voices or visions. Compliant medication. We did discuss placement problems including possibility of homeless discharged to the [facility] versus sober [facility] substance abuse treatment programs. The need to consider discharge will the next 24-48 hours Justification for Cont. Inpt. At this time patient decompensate if now placed in an appropriate level of care Discharge Planning Continue to work very issues including sober houses and homeless discharge Request HC Surrog/Guard Advoc?: No Brenden Carrion MD Jun 20, 2017 13:42
[2017-06-20 18:29] VITALS: BP 115/61; PULSE 62; RESP 18; TEMP 98; O2SAT 97
[2017-06-21 06:30] VITALS: BP 114/65; PULSE 67; RESP 18; TEMP 99.4; O2SAT 97
[2017-06-21] MEDS: lamoTRIgine 100 MG TAB PO SCH (08:25)
[2017-06-21] MEDS: buPROPion HCL 150 MG SUSTAINED RELEASE TAB PO SCH (08:25)
[2017-06-21] MEDS: NICOTINE 21 MG/24 HR PATCH T-DERMAL SCH (09:00)
[2017-06-21] MEDS: REMOVE OLD PATCH T-DERMAL SCH (09:00)
[2017-06-21] MEDS ORDERED: LAMI200T PO (09:50)
[2017-06-21] MEDS ORDERED: BUPR150CR PO (09:50)
[2017-06-21] MEDS ORDERED: TRAZ50TA12 PO (09:50)
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
== END 2017-06-21 15:15 | DRG 882 ==
LOC: NEPD 16:03 → NEDA 06-06 10:21 → H270 06-06 13:55 → H260 06-18 15:35
PROVIDERS: ADMIT Psychiatry & Neurology Psychiatry; ATTEND Psychiatry & Neurology Psychiatry
DX: F43.25 Adjustment disorder with mixed disturbance of emotions and conduct (principal); I50.9 Heart failure, unspecified; I95.9 Hypotension, unspecified; R45.851 Suicidal ideations; F14.20 Cocaine dependence, uncomplicated; S42.341A Displaced spiral fracture of shaft of humerus, right arm, initial encounter for closed fracture; G40.909 Epilepsy, unspecified, not intractable, without status epilepticus; F31.9 Bipolar disorder, unspecified; F17.210 Nicotine dependence, cigarettes, uncomplicated; R41.89 Other symptoms and signs involving cognitive functions and awareness; S42.001A Fracture of unspecified part of right clavicle, initial encounter for closed fracture; R10.9 Unspecified abdominal pain; R19.7 Diarrhea, unspecified; V19.3XXA Pedal cyclist (driver) (passenger) injured in unspecified nontraffic accident, initial encounter; Z59.0 Homelessness; Z87.820 Personal history of traumatic brain injury; Z88.0 Allergy status to penicillin
CPT/HCPCS: 73060; 74020; 74177; 80048; 80053; 80061; 80307; 81001; 82272; 82306; 82607; 83036; 83690; 83735; 84443; 84484; 85007; 85025; 85027; 85610; 85730; 87493; 90686; 93005; 96360; 96361; J7030; Q2038; Q9967

== ENCOUNTER 2017-12-11 18:43 | Emergency (ER) | payer SELFPAY ==
[~2017-12-11] VITALS: Ht 167.6 cm; Wt 70.0 kg
[~2017-12-11 18:43] MED LIST changes: -BACT800T5 PO; +BUPR150CR PO; -HYDR-3516 PO; +TRAZ50TA12 PO
[2017-12-11 19:25] VITALS: BP 164/98; PULSE 69; RESP 19; TEMP 97.8; O2SAT 100
[2017-12-11 22:30] LABS: BILIRUBIN, URINE NEG (NEG); BLOOD, URINE NEG (NEG); GLUCOSE,URINE NEG (NEG); HYALINE CAST, URINE 3 /lpf (RARE); KETONE, URINE NEG (NEG); MUCUS URINE MANY /lpf (OCC); NITRITE,URINE NEG (NEG); PH, URINE 5.5 (5.0-8.5); SQUAMOUS EPITHELIAL CELL URINE 1 /hpf (0-5); URINE COLOR YELLOW (YELLW/STRAW); URINE LEUKOCYTE ESTERASE NEG (NEG)
[2017-12-11 22:31] LABS: AUTOMATED NEUTROPHIL # 3.1 TH/MM3 (1.8-7.7); BASOPHIL # 0.1 TH/MM3 (0-0.2); BASOPHIL % 1.2 % (0.0-2.0); EOSINOPHIL # 0.1 TH/MM3 (0-0.4); EOSINOPHIL % 1.8 % (0.0-4.0); HEMATOCRIT 44.1 % (39.0-51.0); HEMOGLOBIN 15.5 GM/DL (13.0-17.0); LYMPH % 24.3 % (9.0-44.0); LYMPHOCYTE # 1.2 TH/MM3 (1.0-4.8); MEAN CELL VOLUME 94.1 FL (80.0-100.0); MEAN CORPUSCULAR HEMOGLOBIN 33.2 PG (27.0-34.0); MEAN CORPUSCULAR HGB CONC 35.2 % (32.0-36.0); MEAN PLATELET VOLUME 7.1 FL (7.0-11.0); MONO % 10.5 % (0.0-8.0); MONOCYTE # 0.5 TH/MM3 (0-0.9); NEUT % 62.2 % (16.0-70.0); PLATELET COUNT 172 TH/MM3 (150-450); RED BLOOD COUNT 4.68 MIL/MM3 (4.50-5.90); RED CELL DISTRIBUTION WIDTH 14.3 % (11.6-17.2)
[2017-12-11 22:44] LABS: ALT (GPT) 74 U/L (12-78); AST (GOT) 40 U/L (15-37); BICARBONATE 31.2 MEQ/L (21.0-32.0); BLOOD UREA NITROGEN 12 MG/DL (7-18); CALCIUM 9.2 MG/DL (8.5-10.1); CHLORIDE 103 MEQ/L (98-107); GLOMERULAR FILTRATION RATE 86 ML/MIN (>89); GLUCOSE,RANDOM 86 MG/DL (74-106); SODIUM (NA) 143 MEQ/L (136-145)
[2017-12-11 22:46] LABS: ALKALINE PHOSPHATASE 57 U/L (45-117); TOTAL BILIRUBIN ADULT 2.4 MG/DL (0.2-1.0)
--- NOTE | 2017-12-11 23:10 | PD ---
HPI Chief Complaint: Psychiatric Symptoms Time Seen by Provider: 22:10 Travel History International Travel<30 days: No Contact w/Intl Traveler<30days: No Traveled to known affect area: No History of Present Illness HPI Patient is a 8-year-old male presenting to the emergency department voluntarily for psychiatric evaluation. Patient reports that he has been depressed for several months. He reports feeling suicidal for the last several weeks. He states he feels this way because of "life in general". Patient states he had attempted suicide previously by jumping in the ocean and drinking salt water. He denies any drugs or alcohol use. He reports relationship issues with his children, he is . He states he is estranged from them due to his poor choices regarding drugs and alcohol. Patient denies any hallucinations or homicidal ideations. Symptom onset is unknown, symptoms are exacerbated by relationship issues as well as patient is currently undomiciled. PFSH Past Medical History Bipolar Disorder: Yes Anxiety: Yes Depression: Yes Cardiovascular Problems: Yes Congestive Heart Failure: Yes Genitourinary: Yes Kidney Stones: Yes Musculoskeletal: Yes Neurologic: Yes Past Surgical History Abdominal Surgery: Yes (Gall bladder & hernia) Body Medical Devices: METALLIC STRUT C 5 PLATES FROM C3-C7 Cardiac Surgery: No Cholecystectomy: Yes Ear Surgery: No Endocrine Surgery: No Eye Surgery: No Genitourinary Surgery: No Gynecologic Surgery: No Oral Surgery: No Thoracic Surgery: No Other Surgery: Yes Social History Alcohol Use: Yes (occas) Tobacco Use: Yes (1/2 PPD) Substance Use: Yes (KENJI METH COCAINE) Allergies-Medications (Allergen,Severity, Reaction): Coded Allergies: penicillin G (Unverified Allergy, Unknown, 06/05/17) as a child Reported Meds & Prescriptions Reported Meds & Active Scripts Active Trazodone (Trazodone HCl) 50 Mg Tab 50 Mg PO HS PRN Lamictal (Lamotrigine) 200 Mg Tab 200 Mg PO 2 PO DAILY Wellbutrin SR 12 HR (Bupropion HCl) 150 Mg Tab 150 Mg PO DAILY Reported Lamictal (Lamotrigine) 200 Mg Tab 400 Mg PO DAILY Review of Systems Except as stated in HPI: all other systems reviewed are Neg Psychiatric: Positive: Depression, Suicidal Ideations Physical Exam Narrative GENERAL: Well-developed, well-nourished, well-kept male. Presenting in no acute distress. SKIN: Warm and dry. HEAD: Atraumatic. Normocephalic. EYES: Pupils equal and round. No scleral icterus. No injection or drainage. ENT: No nasal bleeding or discharge. Mucous membranes pink and moist. NECK: Trachea midline. No JVD. CARDIOVASCULAR: Regular rate and rhythm. RESPIRATORY: No accessory muscle use. Clear to auscultation. Breath sounds equal bilaterally. GASTROINTESTINAL: Abdomen soft, non-tender, nondistended. Hepatic and splenic margins not palpable. MUSCULOSKELETAL: Extremities without clubbing, cyanosis, or edema. No obvious deformities. NEUROLOGICAL: Awake and alert. No obvious cranial nerve deficits. Motor grossly within normal limits. Five out of 5 muscle strength in the arms and legs. Normal speech. PSYCHIATRIC: Depressed mood and flat affect; insight and judgment normal. Data Data Last Documented VS Vital Signs Date Time Temp Pulse Resp B/P (MAP) Pulse Ox O2 Delivery O2 Flow Rate FiO2 12/11/17 19:25 97.8 69 19 164/98 (120) 100 Orders Orders Psych Screen (12/11/17 20:34) Complete Blood Count With Diff (12/11/17 21:45) Comprehensive Metabolic Panel (12/11/17 21:45) Drug Screen, Random Urine (12/11/17 21:45) Alcohol (Ethanol) (12/11/17 21:45) Urinalysis - C+S If Indicated (12/11/17 22:04) Labs Laboratory Tests Test 12/11/17 22:00 12/11/17 22:04 White Blood Count 5.0 TH/MM3 Red Blood Count 4.68 MIL/MM3 Hemoglobin 15.5 GM/DL Hematocrit 44.1 % Mean Corpuscular Volume 94.1 FL Mean Corpuscular Hemoglobin 33.2 PG Mean Corpuscular Hemoglobin Concent 35.2 % Red Cell Distribution Width 14.3 % Platelet Count 172 TH/MM3 Mean Platelet Volume 7.1 FL Neutrophils (%) (Auto) 62.2 % Lymphocytes (%) (Auto) 24.3 % Monocytes (%) (Auto) 10.5 % Eosinophils (%) (Auto) 1.8 % Basophils (%) (Auto) 1.2 % Neutrophils # (Auto) 3.1 TH/MM3 Lymphocytes # (Auto) 1.2 TH/MM3 Monocytes # (Auto) 0.5 TH/MM3 Eosinophils # (Auto) 0.1 TH/MM3 Basophils # (Auto) 0.1 TH/MM3 CBC Comment DIFF FINAL Differential Comment Blood Urea Nitrogen 12 MG/DL Creatinine 0.90 MG/DL Random Glucose 86 MG/DL Total Protein 7.0 GM/DL Albumin 4.0 GM/DL Calcium Level 9.2 MG/DL Alkaline Phosphatase 57 U/L Aspartate Amino Transf (AST/SGOT) 40 U/L Alanine Aminotransferase (ALT/SGPT) 74 U/L Total Bilirubin 2.4 MG/DL Sodium Level 143 MEQ/L Potassium Level 3.9 MEQ/L Chloride Level 103 MEQ/L Carbon Dioxide Level 31.2 MEQ/L Anion Gap 9 MEQ/L Estimat Glomerular Filtration Rate 86 ML/MIN Ethyl Alcohol Level LESS THAN 3 MG/DL Urine Color YELLOW Urine Turbidity HAZY Urine pH 5.5 Urine Specific [place] 1.012 Urine Protein NEG mg/dL Urine Glucose (UA) NEG mg/dL Urine Ketones NEG mg/dL Urine Occult Blood NEG Urine Nitrite NEG Urine Bilirubin NEG Urine Urobilinogen 2.0 MG/DL Urine Leukocyte Esterase NEG Urine RBC 1 /hpf Urine WBC 3 /hpf Urine Squamous Epithelial Cells 1 /hpf Urine Hyaline Casts 3 /lpf Urine Mucus MANY /lpf Microscopic Urinalysis Comment CULT NOT INDICATED Urine Opiates Screen NEG Urine Barbiturates Screen NEG Urine Amphetamines Screen NEG Urine Benzodiazepines Screen NEG Urine Cocaine Screen NEG Urine Cannabinoids Screen NEG [facility] Medical Decision Making Medical Screen Exam Complete: Yes Emergency Medical Condition: Yes Interpretation(s) Laboratory Tests Test 12/11/17 22:00 12/11/17 22:04 White Blood Count 5.0 TH/MM3 Red Blood Count 4.68 MIL/MM3 Hemoglobin 15.5 GM/DL Hematocrit 44.1 % Mean Corpuscular Volume 94.1 FL Mean Corpuscular Hemoglobin 33.2 PG Mean Corpuscular Hemoglobin Concent 35.2 % Red Cell Distribution Width 14.3 % Platelet Count 172 TH/MM3 Mean Platelet Volume 7.1 FL Neutrophils (%) (Auto) 62.2 % Lymphocytes (%) (Auto) 24.3 % Monocytes (%) (Auto) 10.5 % Eosinophils (%) (Auto) 1.8 % Basophils (%) (Auto) 1.2 % Neutrophils # (Auto) 3.1 TH/MM3 Lymphocytes # (Auto) 1.2 TH/MM3 Monocytes # (Auto) 0.5 TH/MM3 Eosinophils # (Auto) 0.1 TH/MM3 Basophils # (Auto) 0.1 TH/MM3 CBC Comment DIFF FINAL Differential Comment Blood Urea Nitrogen 12 MG/DL Creatinine 0.90 MG/DL Random Glucose 86 MG/DL Total Protein 7.0 GM/DL Albumin 4.0 GM/DL Calcium Level 9.2 MG/DL Alkaline Phosphatase 57 U/L Aspartate Amino Transf (AST/SGOT) 40 U/L Alanine Aminotransferase (ALT/SGPT) 74 U/L Total Bilirubin 2.4 MG/DL Sodium Level 143 MEQ/L Potassium Level 3.9 MEQ/L Chloride Level 103 MEQ/L Carbon Dioxide Level 31.2 MEQ/L Anion Gap 9 MEQ/L Estimat Glomerular Filtration Rate 86 ML/MIN Ethyl Alcohol Level LESS THAN 3 MG/DL Urine Color YELLOW Urine Turbidity HAZY Urine pH 5.5 Urine Specific [place] 1.012 Urine Protein NEG mg/dL Urine Glucose (UA) NEG mg/dL Urine Ketones NEG mg/dL Urine Occult Blood NEG Urine Nitrite NEG Urine Bilirubin NEG Urine Urobilinogen 2.0 MG/DL Urine Leukocyte Esterase NEG Urine RBC 1 /hpf Urine WBC 3 /hpf Urine Squamous Epithelial Cells 1 /hpf Urine Hyaline Casts 3 /lpf Urine Mucus MANY /lpf Microscopic Urinalysis Comment CULT NOT INDICATED Urine Opiates Screen NEG Urine Barbiturates Screen NEG Urine Amphetamines Screen NEG Urine Benzodiazepines Screen NEG Urine Cocaine Screen NEG Urine Cannabinoids Screen NEG Vital Signs Date Time Temp Pulse Resp B/P (MAP) Pulse Ox O2 Delivery O2 Flow Rate FiO2 12/11/17 19:25 97.8 69 19 164/98 (120) 100 Differential Diagnosis Mood disorder versus depression versus anxiety versus metabolic abnormality versus substance abuse versus other Narrative Course Patient is a 62-year-old male presenting for psychiatric evaluation due to depression and suicidal ideations. Patient's vital signs are stable, he is otherwise well-appearing. Mental health screening discussed with the patient. Psychiatric screen ordered. Labs reviewed, no acute findings identified. Patient is medically cleared for psychiatric evaluation at this time. Diagnosis Primary Impression: Medical clearance for psychiatric admission Condition: Stable Leann Chacon December 11, 2017 23:09
[2017-12-12 00:29] VITALS: BP 129/78; PULSE 68; RESP 18; O2SAT 100
[2017-12-12 05:31] VITALS: BP 124/79; PULSE 54; RESP 18; O2SAT 100
[2017-12-12 10:29] VITALS: BP 108/68; PULSE 60; RESP 16; TEMP 98.6; O2SAT 100
[2017-12-12 11:49] VITALS: BP 129/76; PULSE 72; RESP 24; TEMP 97.8; O2SAT 98
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
== END 2017-12-12 17:25 | disposition home or self-care (01) ==
LOC: NEPJ 18:43
DX: F43.21 Adjustment disorder with depressed mood (principal); F17.200 Nicotine dependence, unspecified, uncomplicated; F31.9 Bipolar disorder, unspecified; Z59.0 Homelessness; Z79.899 Other long term (current) drug therapy
CPT/HCPCS: 80053; 80307; 81001; 85025; 99283